=== PATIENT | male | born 1980 | race Caucasian/White ===

== ENCOUNTER 2020-05-04 08:07 | Outpatient (REF) | payer OTHER, SELFPAY ==
[2020-05-04 09:21] LABS: MANUAL DIFF FLAG NO
[2020-05-04 09:27] LABS: Basophils Percent Auto 0.4 % (0-2); Eosinophils Absolute Auto 0.1 X10*3/uL (0.0-0.4); Eosinophils Percent Auto 1.2 % (0-4); Hematocrit 47.6 % (42-52); Hemoglobin 16.3 g/dl (14.0-18.0); Imm Gran Abs Auto 0.06 X10*3/uL (0.00-0.03); Imm Gran Pct Auto 0.9 % (0.0-0.4); Lymphocytes Absolute Auto 2.1 X10*3/uL (1.2-4.9); Lymphocytes Percent Auto 31.5 % (20-40); Mean Corpuscular HGB Conc 34.2 g/dl (31.0-36.0); Mean Corpuscular Hemoglobin 30.5 pg (27.0-33.0); Mean Corpuscular Volume 89.1 fL (80-98); Mean Platelet Volume 9.8 fL (9.4-12.4); Monocytes Absolute Auto 0.6 X10*3/uL (0.1-1.2); Monocytes Percent Auto 9.3 % (2-11); Neutrophils Absolute Auto 3.8 X10*3/uL (2.0-8.3); Neutrophils Percent Auto 56.7 % (45-73); Platelet Count 194 X10*3/uL (160-400); Red Blood Count 5.34 X10*6/uL (4.60-5.80); Red Cell Distribution Width 11.8 % (11.0-16.0); White Blood Count 6.8 X10*3/uL (4.8-10.8)
[2020-05-04 10:00] LABS: Alanine Aminotransferase 59 U/L (0-40); Albumin Level 4.6 g/dL (3.5-5.0); Alkaline Phosphatase 66 U/L (39-117); Anion Gap 11 (12-20); Aspartate Amino Transferase 28 U/L (5-37); Bilirubin Total 1.3 mg/dL (0.0-1.0); Blood Urea Nitrogen 15 mg/dL (9-16); Calcium 8.9 mg/dL (8.4-10.2); Carbon Dioxide 27 mmol/L (22-29); Chloride 104 mmol/L (96-108); Cholesterol 188 mg/dL; Estimated Glomerular Filt Rate > 60; Glucose Random 90 mg/dL (60-115); HDL Cholesterol 40 mg/dL; LDL Cholesterol Calculated 108 mg/dl; Potassium 4.4 mmol/l (3.3-5.1); Sodium 138 mmol/L (135-145); Total Protein 7.2 g/dL (6.5-8.0); Triglycerides 202 mg/dL
[2020-05-04 10:22] LABS: Thyroid Stimulating Hormone 0.84 mIU/mL (0.32-4.0)
== END 2020-05-04 08:08 | disposition home or self-care (01) ==
LOC: HO.LAB 08:07
PROVIDERS: PCP Physician Assistant; Visit Provider Physician Assistant
DX: I10 Essential (primary) hypertension (principal); Z13.1 Encounter for screening for diabetes mellitus; Z13.220 Encounter for screening for lipoid disorders
CPT/HCPCS: 36415; 80053; 80061; 84443; 85025

== ENCOUNTER 2020-06-11 13:10 | Outpatient (REF) | payer OTHER, SELFPAY ==
[2020-06-11 13:30] LABS: COVID-19 Test Negative (Negative)
== END 2020-06-11 13:11 | disposition home or self-care (01) ==
LOC: HO.LAB 13:10
PROVIDERS: Visit Provider Internal Medicine
DX: Z20.828 Contact with and (suspected) exposure to other viral communicable diseases (principal)
CPT/HCPCS: 87635; C9803

== ENCOUNTER 2020-06-14 12:31 | Outpatient (REF) | payer OTHER, SELFPAY ==
[2020-06-14 13:02] LABS: COVID-19 Test Positive (Negative)
== END 2020-06-14 12:32 | disposition home or self-care (01) ==
LOC: HO.EMPCOV 12:31
PROVIDERS: Visit Provider Internal Medicine
DX: Z20.828 Contact with and (suspected) exposure to other viral communicable diseases (principal)
CPT/HCPCS: 87635; C9803

== ENCOUNTER 2023-06-05 13:06 | Outpatient (AMB) | payer BC, SELFPAY ==
--- NOTE | 2023-06-05 13:16 | A.OFFPC_ITS ---
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 Accompanied by: Self / Same As Patient Allergies amoxicillin Allergy (Unknown, Verified 06/05/23 14:03) gum swelling Medication List - Last Reconciled 06/05/23 by Reed Pillai PA-C finasteride 5 mg PO DAILY valacyclovir 1,000 mg PO DAILY Tobacco use date assessed: 06/05/23 Dental Screening Dental Screen Date: 06/05/23 Did you have a dental visit in the last 12 months?: Yes Did you have a dental problem in the last 6 months where you did not have access to dental care?: No Was dental information given to patient?: Patient has dentist HPI Conflict with original date HPI Details Patient is a 42 y/o male? here today for a PE.? Patient's past medical history significant for ADHD, history of elevated blood pressure readings. . ADHD : feels he is able to focus at work and not be as distracted.? Has tried Strattera though had side effects of this medication. He is establishing care with a new psychiatrist and will discuss symptoms and possible new medication. He also feels his anxiety is much less. ? .. ?? ?Hypertension: Elevated blood pressure readings over the last several years here in the medical office and at home with home blood pressure readings.:? Will start blood pressure medication at low-dose and continue monitoring. . .. Obesity: Patient does understand his BMI is over 30 and will continue working on being more physically active and adapting to better eating habits to reduce his weight .. ? Male pattern baldness:? patient has been getting finasteride 5 mg online? and now would like his PCP to fill the medications due to cost effectiveness. Vaccines: Up-to-date with COVID vaccine up-to-date with tetanus and flu vaccine PFSH Medical History History of herpes simplex infection Cervical spondylosis Surgical History Hx of cervical spine surgery Family History (Updated 06/05/23 @ 14:09 by Reed Pillai PA-C) Father Cancer of kidney Mother Lung cancer Housing: House Alcohol intake: current Alcohol intake frequency: a few times a month Patient Tobacco Use Status: Never used Tobacco e-Cigarette/Vaping Use: Never Used service: No Current occupational status: employed Cognitive needs: No Hearing needs: No Vision needs: No Questionnaire PHQ-9 Over the last 2 weeks, how often have you been bothered by any of the following problems? 1. Little interest or pleasure in doing things: not at all 2. Feeling down, depressed, or hopeless: not at all 3. Trouble falling or staying asleep, or sleeping too much: not at all 4. Feeling tired or having little energy: not at all 5. Poor appetite or overeating: not at all 6. Feeling bad about yourself - or that you are a failure or have let yourself or your family down: not at all 7. Trouble concentrating on things, such as reading the newspaper or watching television: not at all 8. Moving or speaking so slowly that other people could have noticed. Or the opposite - being so fidgety or restless that you have been moving around a lot more than usual: not at all 9. Thoughts that you would be better off or of hurting yourself in some way: not at all Total score: 0 Depression Screening Interpretation: Negative Depression Screening Done: Yes 53222 - PHQ-9 Billing: Yes Source: Developed by Drs. Raoul Escamilla, Ronna Luna, Damion Choe and colleagues, with an educational glenroy from [employer] (Inspect Manager). Thrive Questionnaire Date Thrive assessed: 06/05/23 I am a: Patient What is your living situation today?: I have a steady place to live Within the past 12 months, did the food you bought not last and you didn't have the money to get more?: Never true Within the past 12 months, did you worry whether your food would run out before you got money to buy more?: Never true Do you have trouble paying for medicines?: No Do you have trouble getting transportation to medical appointments?: No Do you have trouble paying your heating and electricity bill?: No Do you have trouble taking care of your child, family member or friend?: No Do you have trouble with day-to-day activities such as bathing, preparing meals, shopping, managing finances, etc.?: No Are you currently unemployed and looking for a job?: No Are you interested in more education?: No Please select the resources that you would like help with: None Currently or been in a relationship where the following occur: no concerns reported DARIO-7 AMB Questionnaire DARIO-7 Date DARIO - 7 assessed: 06/05/23 Feeling nervous, anxious, or on edge: 0 = Not at all Not being able to stop or control worryin = Not at all Worrying too much about different things: 0 = Not at all Trouble relaxin = Not at all Being so restless that it is hard to sit still: 0 = Not at all Becoming easily annoyed or irritable: 0 = Not at all Feeling afraid as if something awful might happen: 0 = Not at all Total DARIO-7 score (0-4 normal; 5-9 mild; 10-14 moderate; 15-21 severe): 0 Source: Developed by Drs. Raoul Escamilla, Ronna Luna, Damion Choe and colleagues, with an educational glenroy from [employer] (Inspect Manager). DARIO-7 Assessment Billing DARIO-7 Assessment Tool: DARIO-7 Assessment 66571 Review of Systems Const Denies body aches, Denies chills, Denies excessive sweating, Denies fatigue, Denies fever(s) and Denies headache(s) Eyes Denies blurry vision ENT Denies dysphagia, Denies vertigo, Denies dizziness, Denies headache(s), Denies hearing loss and Denies tinnitus Card Denies chest pain, Denies chest pain with activity, Denies syncope, Denies irregular heart rhythm and Denies dyspnea Resp Denies chest congestion, Denies cough, Denies hemoptysis, Denies dyspnea and Denies wheezing GI Denies abdominal pain, Denies melena, Denies hematochezia, Denies coffee ground emesis, Denies dysphagia, Denies diarrhea, Denies nausea and Denies vomiting Denies difficulty urinating, Denies dysuria, Denies urinary frequency, Denies urinary hesitancy and Denies urinary urgency Musc Denies arthralgias, Denies limited range of motion, Denies muscle cramps and Denies muscle weakness Skin/Breast Denies rash and Denies skin ulcer Neuro Denies Abnormal speech present, Denies confusion, Denies vertigo, Denies dizziness, Denies syncope, Denies headache(s), Denies memory loss and Denies seizure-like activity Psych Denies anxiety, Denies confusion, Denies depression, Denies memory loss, Denies panic attacks and Denies paranoia Endo Denies excessive sweating, Denies fatigue, Denies flushing, Denies polydipsia and Denies polyuria Aller/Immun Denies wheezing Physical exam (Primary Care) Vital Signs: Last Vital Signs Pulse 67 06/05/23 13:17 BP 142/88 H 06/05/23 13:17 Pulse Ox 97 06/05/23 13:17 Oxygen Delivery Method Room Air 06/05/23 13:17 BMI result Body Mass Index 32.6 BMI Assessment/Plan discussion: High Tobacco/Smoking Status: Tobacco use Status Tobacco use date assessed 06/05/23 06/05/23 13:28 Patient Tobacco Use Status Never used Tobacco 06/05/23 13:25 e-Cigarette/Vaping Use Never Used 06/05/23 13:28 PHQ-9: PHQ-9 Score PHQ-9: Total score 0 06/05/23 14:12 Depression Screening Interpretation: Negative Thrive Assessment: Date of Thrive Assessment Date Thrive assessed 06/05/23 06/05/23 13:25 Currently or been in a relationship where the following occur: no concerns reported Const Other: Obese General: cooperative, comfortable, no acute distress, alert and awake; No confusion Orientation/consciousness: oriented to person, oriented to place, patient oriented x3 and No confusion HENMT Head: Yes normocephalic Ears: external ears normal and TM's normal bilaterally Face and sinus: No sinus tenderness Mouth: Normal oral and palatal mucosa present and tongue normal Teeth and gingiva: dentition normal and gingiva normal Throat: Yes posterior oropharynx normal, Yes tonsils normal and Yes uvula midline Eyes Conjunctivae: conjunctivae normal Sclerae: sclerae normal Pupils: Equal, round and reactive pupils present EOM: EOMs intact bilaterally Direct Ophthalmoscopy: No no photophobia Neck Neck: Yes no lymphadenopathy, No tender and Yes no JVD Thyroid: Thyroid normal Carotids: no bruits Chest Chest palpation & inspection: no tenderness Resp Effort & Inspection: normal respiratory effort, no audible wheezes, not labored and no stridor Auscultation: no crackles, no rales, no rhonchi and no wheezes Cardio Jugular venous distension: no JVD Rate: regular rate, not bradycardic and not tachycardic Rhythm: regular rhythm Bruits: no carotid bruits Peripheral pulses: Peripheral pulses 2+ throughout GI Inspection: Yes normal to inspection, No abdominal wall ecchymosis and No visible herniation Palpation (GI): Soft to palpation, nontender, no guarding, not rigid and No hepatosplenomegaly present Auscultation: normoactive bowel sounds General: Yes no CVA tenderness Back/Spine/Pelvis Back: no CVA tenderness and No back tenderness Cervical Spine: cervical ROM normal Thoracic/Lumbar Spine: thoracic and lumbar spine normal to inspection, straight leg raise negative bilaterally, No thoraco-lumbar ROM limited and No lumbar spinal tenderness Skin Lesions: no lesions Rashes: no rashes Wounds: no wounds Neuro General: oriented to person, oriented to place, patient oriented x3, CN's II-XI intact bilaterally and No confusion Cranial nerves: Yes Equal, round and reactive pupils present and Yes Normal accommodation reflex present Cognition (Neuro): normal cognition Speech: No Abnormal speech present Gait exam (Neuro): Normal gait present Motor exam (neuro): 5/5 motor strength present throughout Extrem Right upper extremity: full ROM; no cyanosis Left upper extremity: full ROM; no cyanosis Right lower extremity: no edema Left lower extremity: no edema Psych Appearance: grossly normal Mental Status: mental status grossly normal Affect: normal affect Attitude: cooperative Thought process: Normal thought process present Assessment and Plan Assessment & Plan (1) Annual physical exam: Code(s): Z00.00 - Encounter for general adult medical examination without abnormal findings (2) HTN (hypertension): Code(s): I10 - Essential (primary) hypertension Qualifiers: Hypertension type: primary hypertension Qualified Code(s): I10 - Essential (primary) hypertension Plan: Patient's blood pressure slightly elevated today in office. This has been a recurrent finding thus now interested in starting blood pressure medication. Will start low-dose hydrochlorothiazide on a daily basis for blood pressure control. Advised to continue monitoring blood pressure with goal blood pressure to be below 140/90 (3) ADHD, predominantly inattentive type: Code(s): F90.0 - Attention-deficit hyperactivity disorder, predominantly inattentive type Plan: Continues to manage his ADHD without medication at this time. Has tried Strattera out which was somewhat effective though did not like to side effects. He will reestablish care with a psychiatrist in near future continue discussing symptoms and alternative medication. Is not interested in any stimulants. (4) Hypertriglyceridemia: Code(s): E78.1 - Pure hyperglyceridemia Plan: Patient has a history of hypertriglyceridemia, has made lifestyle changes in his diet recently and will get repeat labs done fasting. Goal triglycerides to be below 150 (5) Screening for diabetes mellitus (DM): Code(s): Z13.1 - Encounter for screening for diabetes mellitus (6) Obese: Code(s): E66.9 - Obesity, unspecified Qualifiers: Body mass index: BMI 30.0-30.9 Obesity classification: adult class 1 (BMI 30 - 34.9) Obesity type: due to excess calories Serious obesity comorbidity presence: without serious comorbidity Qualified Code(s): E66.09 - Other obesity due to excess calories; Z68.30 - Body mass index [BMI] 30.0-30.9, adult Plan: Patient does understand his BMI is slightly over 30 will continue working on being more physically active and adapting to better eating habits to reduce his weight. Orders: Orders Microalbumin, Random (w Creat) 06/05/23 I10 - Essential (primary) hypertension Lipid Panel 06/05/23 E78.1 - Pure hyperglyceridemia Comprehensive [place]. Panel Fast 06/05/23 Z13.1 - Encounter for screening for diabetes mellitus Complete Blood Count no Diff 06/05/23 I10 - Essential (primary) hypertension Medications: New hydrochlorothiazide 12.5 mg PO DAILY 30 days 30 tabs 3RF I10 - Essential (primary) hypertension Coding Level of Care Code Est Pt Prev Care 40-64y([id number]) Diagnoses Annual physical exam Z00.00 Primary hypertension I10 Hypertension type: primary hypertension ADHD, predominantly inattentive type F90.0 Hypertriglyceridemia E78.1 Screening for diabetes mellitus (DM) Z13.1 Class 1 obesity due to excess calories without serious comorbidity with body mass index (BMI) of 30.0 to 30.9 in adult E66.09; Z68.30 Body mass index: BMI 30.0-30.9 Obesity classification: adult class 1 (BMI 30 - 34.9) Obesity type: due to excess calories Serious obesity comorbidity presence: without serious comorbidity Additional Codes DARIO-7 Assessment Billing - DARIO-7 Assessment Tool: DARIO-7 Assessment 46211 ([id number])
[2023-06-05 13:17] VITALS: BP 142/88; PULSE 67; O2SAT 97; BMI 32.6
== END 2023-06-05 14:32 | disposition home or self-care (01) ==
PROVIDERS: Visit Provider Physician Assistant
DX: Z00.00 Encounter for general adult medical examination without abnormal findings (principal); I10 Essential (primary) hypertension; F90.0 Attention-deficit hyperactivity disorder, predominantly inattentive type; E78.1 Pure hyperglyceridemia; Z13.1 Encounter for screening for diabetes mellitus; E66.09 Other obesity due to excess calories; Z68.30 Body mass index [BMI] 30.0-30.9, adult
CPT/HCPCS: 99396

== ENCOUNTER 2023-07-03 10:54 | Outpatient (REF) | payer BC, SELFPAY ==
[2023-07-03 11:36] LABS: Hematocrit 46.7 % (42.0-52.0); Hemoglobin 16.4 g/dl (14.0-18.0); Mean Corpuscular HGB Conc 35.1 g/dl (31.0-36.0); Mean Corpuscular Hemoglobin 30.8 pg (27.0-33.0); Mean Corpuscular Volume 87.6 fL (80.0-98.0); Mean Platelet Volume 10.2 fL (9.4-12.4); Platelet Count 155 X10*3/uL (160-400); Red Blood Count 5.33 X10*6/uL (4.60-5.80); Red Cell Distribution Width 12.1 % (11.0-16.0); White Blood Count 10.1 X10*3/uL (4.8-10.8)
[2023-07-03 12:19] LABS: Alanine Aminotransferase 33 U/L (0-40); Albumin Level 4.8 g/dL (3.5-5.0); Alkaline Phosphatase 66 U/L (39-117); Anion Gap 13 (12-20); Aspartate Amino Transferase 20 U/L (5-37); Bilirubin Total 1.5 mg/dL (0.0-1.0); Blood Urea Nitrogen 13 mg/dL (9-16); Calcium 10.2 mg/dL (8.4-10.2); Carbon Dioxide 27 mmol/L (22-29); Chloride 106 mmol/L (96-108); Cholesterol 191 mg/dL (<200); Estimated Glomerular Filt Rate > 60; Glucose Fasting 94 mg/dL (60-99); HDL Cholesterol 44 mg/dL (>40); LDL Cholesterol Calculated 105 mg/dL (<100); Potassium 3.8 mmol/L (3.3-5.1); Sodium 142 mmol/L (135-145); Triglycerides 211 mg/dL (<150)
[2023-07-03 12:26] LABS: Creatinine Urine 102.68 mg/dL; Microalbum/Creatinine Ratio Ur 19.4 ug/mg cr (<30)
== END 2023-07-03 10:55 | disposition home or self-care (01) ==
LOC: HO.LAB 10:54
PROVIDERS: PCP Physician Assistant; Visit Provider Physician Assistant
DX: Z13.1 Encounter for screening for diabetes mellitus (principal); I10 Essential (primary) hypertension; E78.1 Pure hyperglyceridemia
CPT/HCPCS: 36415; 80053; 80061; 82043; 82570; 85027

== ENCOUNTER 2023-07-30 13:31 | Emergency (ER) | payer BC, SELFPAY ==
--- NOTE | ~2023-07-30 | XR_ITS ---
EXAMINATION: XR CHEST CLINICAL INFORMATION: Chest tightness COMPARISON: None available. TECHNIQUE: 2 views of the chest were obtained. FINDINGS: No significant abnormality is noted involving the heart, lungs, mediastinum, bony thorax or soft tissues. XR/XR chest 2V IMPRESSION: Unremarkable examination.
--- NOTE | 2023-07-30 13:33 | ECG_ITS ---
Test Reason : chest pain Blood Pressure : / mmHG Vent. Rate : 099 BPM Atrial Rate : 099 BPM P-R Int : 154 ms QRS Dur : 100 ms QT Int : 346 ms P-R-T Axes : 056 -49 031 degrees QTc Int : 444 ms Normal sinus rhythm Left axis deviation Minimal voltage criteria for LVH, may be normal variant ( [place] product ) Abnormal ECG No previous ECGs available Referred By: Bety Allen Electronically Signed By:KORY VEGA
[2023-07-30 13:45] VITALS: BP 161/93; PULSE 93; RESP 18; TEMP 36.8; O2SAT 98; BMI 30.7
--- NOTE | 2023-07-30 13:45 | ED_ITS ---
HPI - Chest Pain General Chief Complaint: Chest Pain Stated Complaint: chest tightness Time Seen by Provider: 07/30/23 15:21 Source: patient Mode of arrival: ambulatory Limitations: no limitations History of Present Illness HPI narrative: Patient is a 43 year old assigned male at with a history of ADHD presenting to the emergency department today with intermittent left sided chest pain. Patient states that over the last 2 months he has had 2 episodes of left sided chest pain and chest heaviness. Patient states that his most recent episode was when he woke up to multiple inches of water in his basement. Patient states that the pain continues but isn't as bad as it originally was. Patient denies any dizziness, lightheadedness, abdominal pain, nausea, vomiting, fever, chills, blurry vision, double vision, loss of vision, difficulty breathing, shortness of breath, back pain, night sweats, pain with urination, increased urinary frequency, increased urinary urgency, blood in his urine or stool, syncope or a near syncopal episode, recent trauma or falls, bowel incontinence, bladder incontinence, bowel retention, bladder retention, or any other complaints at this time. MD complaint: chest pain Related Data Previous Rx's Medication Instructions Recorded finasteride 5 mg tablet 5 mg PO DAILY #90 tabs 12/15/22 valacyclovir 1 gram tablet 1,000 mg PO DAILY #7 tabs 12/15/22 lisinopril 2.5 mg tablet 2.5 mg PO DAILY 30 days #30 tabs 07/26/23 hydroxyzine HCl 10 mg tablet 10 mg PO TID PRN anxiety #14 tabs 07/30/23 Allergies Allergy/AdvReac Type Severity Reaction Status Date / Time No Known Allergies Allergy Verified 07/30/23 13:45 Review of Systems 2 Constitutional: Constitutional: Reports no additional constitutional complaints, Denies chills, Denies fever(s) and Denies night sweats Eyes: Eyes: Reports no additional eye complaints, Denies blurry vision, Denies change in vision, Denies diplopia, Denies eye discharge, Denies loss of vision and Denies eye pain ENT: Denies dizziness Cardiovascular: Cardiovascular: Reports no additional cardiovascular complaints, Reports chest pain, Denies lightheadedness, Denies Loss of Consciousness and Denies dyspnea Respiratory: Respiratory: Reports no additional respiratory complaints and Denies dyspnea Gastrointestinal: Gastrointestinal: Reports no additional gastrointestinal complaints, Denies abdominal pain, Denies melena, Denies hematochezia, Denies change in bowel habits and Denies change in stool character Genitourinary: Genitourinary: Reports no additional male genitourinary complaints, Denies hematuria, Denies oliguria, Denies difficulty urinating, Denies dysuria, Denies urinary frequency, Denies urinary hesitancy, Denies urinary incontinence and Denies urinary urgency Musculoskeletal: Musculoskeletal: Reports no additional musculoskeletal complaints, Denies numbness and Denies tingling Neurologic: Denies dizziness, Denies loss of vision, Denies numbness and Denies tingling Psychiatric: Psychiatric: Reports no additional psychiatric complaints Endocrine: Endocrine: Reports no additional endocrine complaints Hematologic/Lymphatic: Hematologic/Lymphatic: Reports no additional hematologic/lymphatic complaints Allergic/Immunologic: Allergic/Immunologic: Reports no additional allergic/immunologic complaints [facility] Past Medical History Attestation statement: The following information was validated with the patient. Source: old records reviewed and nursing notes reviewed Onset Date is defined in the Problem List Problems that require an onset date and time if occurred within 24 hrs of arrival to the ED Aortic Dissection and Rupture; Neurologic impairment; Cardiopulmonary Arrest; Endotracheal Intubation; Insertion or Replacement of Mechanical Circulatory Assist Device Medical History History of herpes simplex infection Cervical spondylosis Surgical History Hx of cervical spine surgery Family History Family History Father Cancer of kidney Mother Lung cancer Social History Social History Housing: House Alcohol intake: current Alcohol intake frequency: a few times a month Patient Tobacco Use Status: Never used Tobacco e-Cigarette/Vaping Use: Never Used Advance Directives: No Advance Directives Information Provided: No service: No Current occupational status: employed Cognitive needs: No Hearing needs: No Vision needs: No Physical Exam 2 Vital Signs: Vital Signs: Last Vital Signs Temp 98.2 F 07/30/23 13:45 Pulse 93 07/30/23 13:45 Resp 18 07/30/23 13:45 BP 161/93 H 07/30/23 13:45 Pulse Ox 98 07/30/23 13:45 O2 Del Method Room Air 07/30/23 13:45 BMI result Body Mass Index 30.7 Const: General: cooperative, no acute distress, alert and awake Nutritional Appearance: well nourished Orientation/consciousness: patient oriented x3 Limitations: no limitations HEENT: Head: Yes normal to inspection and Yes atraumatic Ears: hearing grossly normal bilaterally and external ears normal General nose exam: Normal external nose present, no nasal discharge noted and no epistaxis Face and sinus: Yes normal facial exam, No abrasion and No laceration Mouth: Normal oral and palatal mucosa present, no drooling and no muffled voice Eyes: General: appearance normal, both eyes and all related structures P eriorbital: periorbital findings normal Eyelids: Yes eyelids normal C onjunctivae: conjunctivae normal Pupils: Equal, round and reactive pupils present EOM: EOMs intact bilaterally Neck: Neck: Yes normal visual inspection, Yes full ROM and Yes no lymphadenopathy Chest: Chest palpation & inspection: normal inspection of the chest Resp: Effort & Inspection: normal respiratory effort and able to speak in complete sentences Auscultation: clear to auscultation bilaterally Cardio: Rate: regular rate Rhythm: regular rhythm GI: Inspection: Yes normal to inspection Neuro: General: patient oriented x3 and moves all extremities Cranial nerves: Yes Equal, round and reactive pupils present Cognition (Neuro): n ormal cognition Motor exam (neuro): 5/5 motor strength present throughout Sensory Exam: Normal double simultaneous stimulation for sensation C oordination: [id number] test normal Extrem: General: Yes normal to inspection, Yes full ROM and Yes capillary refill normal Psych: Appearance: grossly normal Mental Status: mental status grossly normal Affect: normal affect Attitude: cooperative Thought process: N ormal thought process present Thought content: Normal thought content present Insight: Good insight present (Psych) Course Course Course Narrative: RME:?43 yo male hx ADHD here w/ chest tightness x6 days. Placed on doxy on 07/07 after being exposed to pneumonia. Began having chest tightness 1 week later. saw PCP who placed him on lisinopril 2.5 mg qd 6 days ago for elevated BP. has been having chest tightness since. bp at home this morning was 160s/90s. denies headache, dizziness, vision changes, chest pain, sob. lungs CTA b/l. plan for ekg, labs Full HPI, ROS and PE to be performed by the primary ED provider. Medications Administered Discontinued Medications Generic Name Dose Route Start Last Admin Trade Name Monique PRN Reason Stop Dose Admin Ketorolac Tromethamine 15 mg 07/30/23 15:37 07/30/23 15:48 Ketorolac Tromethamine 15 Mg/Ml Vial IM 07/30/23 15:38 15 mg ONCE ONE Administration Medical Decision Making Medical Decision Making [facility] Narrative: Patient is a 43 year old assigned male at with a history of ADHD presenting to the emergency department today with intermittent left sided chest pain. Patient's physical exam was unremarkable. Patient's blood work was unremarkable. Patient's EKG was unremarkable. Patient's chest x-ray showed no acute process. I explained my physical exam findings as well as all test results to the patient. I answered all questions asked by the patient. I stressed the importance of the patient taking his medication as prescribed. I stressed the importance of the patient following up with his primary care provider and a retail sales advisor. I stressed the importance of the patient returning to the emergency department immediately if his symptoms were to worsen or if he were to develop any dizziness, shortness of breath, difficulty breathing, chest pain, blurry vision, loss of vision, nausea, vomiting, abdominal pain, fever, chills, back pain, or any other complaints. Patient verbalized agreement and understanding with this treatment plan and discharge. Differential Diagnosis Differential Diagnoses: The differential diagnosis associated with the presentation includes Chest pain STEMI NSTEMI Anxiety Admission/Observation Consideration of admission/observation: Escalation of care including admission/observation considered Patient would have been admitted to the hospital had his work up had any findings where hospital admission was appropriate and his clinical presentation warranted hospital admission. Lab Data [facility] Lab Attestation statement: I reviewed the patient's lab results. My interpretation of these studies and their corresponding values is that they are grossly normal. 07/30/23 13:55 07/30/23 13:55 Labs: Lab Results 07/30/23 Range/Units 13:55 WBC 7.8 (4.8-10.8) X10*3/uL RBC 5.67 (4.60-5.80) X10*6/uL Hgb 17.5 (14.0-18.0) g/dl Hct 48.9 (42.0-52.0) % MCV 86.2 (80.0-98.0) fL MCH 30.9 (27.0-33.0) pg MCHC 35.8 (31.0-36.0) g/dl RDW 11.8 (11.0-16.0) % Plt Count 158 L (160-400) X10*3/uL MPV 9.7 (9.4-12.4) fL Immature Gran % (Auto) 0.8 H (0.0-0.4) % Neut % (Auto) 53.6 (45-73) % Lymph % (Auto) 35.6 (20-40) % Rapides % (Auto) 8.2 (2-11) % Eos % (Auto) 1.4 (0-4) % Baso % (Auto) 0.4 (0-2) % Lymph # (Auto) 2.8 (1.2-4.9) X10*3/uL [place] # (Auto) 0.6 (0.1-1.2) X10*3/uL Eos # (Auto) 0.1 (0.0-0.4) X10*3/uL Baso # (Auto) 0.0 (0.0-0.2) X10*3/uL Abs Immat Gran (auto) 0.06 H (0.00-0.03) X10*3/uL Absolute Neuts (auto) 4.2 (2.0-8.3) x10*3/uL Absolute Nucleated RBC 0.000 (0.0-0.012) X10*3/uL Nucleated RBC % (auto) 0.0 (0.0-0.2) /100WBC Sodium 138 (135-145) mmol/L Potassium 4.2 (3.3-5.1) mmol/L Chloride 104 (96-108) mmol/L Carbon Dioxide 26 (22-29) mmol/L Anion Gap 12 (12-20) BUN 11 (9-16) mg/dL Creatinine 0.93 (0.5-1.4) mg/dL Estim Creat Clear Calc 122.1 Estimated GFR > 60 Random Glucose 106 (60-115) mg/dL Calcium 10.0 (8.4-10.2) mg/dL Magnesium 2.0 (1.6-2.6) mg/dL Troponin I High Sens < 2.7 (<3.5-35.0) ng/L Lipase 21 (8-78) U/L Independent Interpretation I performed an independent interpretation of an: EKG and Plain X-Ray Interpretation: My interpretation is in agreement with the radiologist's impression of this imaging study. - EXAMINATION: XR CHEST CLINICAL INFORMATION: Chest tightness COMPARISON: None available. TECHNIQUE: 2 views of the chest were obtained. FINDINGS: No significant abnormality is noted involving the heart, lungs, mediastinum, bony thorax or soft tissues. XR/XR chest 2V IMPRESSION: Unremarkable examination. Dictated By: Carmen Terry MD Signed By: Electronically signed by Carmen Terry MD 07/30/23 1439 - Vent. Rate: 099 BPM Atrial Rate: 099 BPM P-R Int: 154 ms QRS Dur: 100 ms QT Int: 346 ms P-R-T Axes: 056 -49 031 degrees QTc Int: 444 ms Normal sinus rhythm Left axis deviation Minimal voltage criteria for LVH, may be normal variant ( Luis Antonio product ) Abnormal ECG No previous ECGs available Electronically Signed By:MISHA VEGA Dictated By: Misha Vega MD Signed By: Electronically signed by Misha Vega MD 07/30/23 9547 Radiology Impression Discussion of test interpretation with radiology: I have reviewed the radiologist's reading. Discharge Plan Discharge Clinical Impression: Chest pain, Anxiety Patient Disposition: Home, Self-Care Instructions: Chest Pain (DC), Generalized Anxiety Disorder (ED) Additional Instructions: Follow up with your primary care provider and a retail sales advisor. Return to the emergency department immediately if your symptoms worsen or if you develop any dizziness, shortness of breath, difficulty breathing, chest pain, blurry vision, loss of vision, nausea, vomiting, abdominal pain, fever, chills, back pain, or any other complaints. Prescriptions: New hydroxyzine HCl 10 mg tablet 10 mg PO TID PRN (Reason: anxiety) Qty: 14 0RF No Action finasteride 5 mg tablet 5 mg PO DAILY Qty: 90 1RF valacyclovir 1 gram tablet 1,000 mg PO DAILY Qty: 7 1RF lisinopril 2.5 mg tablet 2.5 mg PO DAILY 30 Days Qty: 30 3RF Referrals: [facility] [Provider Group] (Call to establish and follow up with a retail sales advisor. ) Reed Pillai PA-C [Primary Care Provider] - Interventions: ED Discharge Assessment Last Done: 07/30/23 15:54 Discharge Date/Time: 07/30/23 15:55 Print Language: Amharic
[2023-07-30 13:59] LABS: MANUAL DIFF FLAG NO
[2023-07-30 14:01] LABS: Basophils Percent Auto 0.4 % (0-2); Eosinophils Absolute Auto 0.1 X10*3/uL (0.0-0.4); Eosinophils Percent Auto 1.4 % (0-4); Hematocrit 48.9 % (42.0-52.0); Hemoglobin 17.5 g/dl (14.0-18.0); Imm Gran Abs Auto 0.06 X10*3/uL (0.00-0.03); Imm Gran Pct Auto 0.8 % (0.0-0.4); Lymphocytes Absolute Auto 2.8 X10*3/uL (1.2-4.9); Lymphocytes Percent Auto 35.6 % (20-40); Mean Corpuscular HGB Conc 35.8 g/dl (31.0-36.0); Mean Corpuscular Hemoglobin 30.9 pg (27.0-33.0); Mean Corpuscular Volume 86.2 fL (80.0-98.0); Mean Platelet Volume 9.7 fL (9.4-12.4); Monocytes Absolute Auto 0.6 X10*3/uL (0.1-1.2); Monocytes Percent Auto 8.2 % (2-11); Neutrophils Absolute Auto 4.2 x10*3/uL (2.0-8.3); Neutrophils Percent Auto 53.6 % (45-73); Platelet Count 158 X10*3/uL (160-400); Red Blood Count 5.67 X10*6/uL (4.60-5.80); Red Cell Distribution Width 11.8 % (11.0-16.0); White Blood Count 7.8 X10*3/uL (4.8-10.8)
[2023-07-30 14:13] LABS: Anion Gap 12 (12-20); Blood Urea Nitrogen 11 mg/dL (9-16); Carbon Dioxide 26 mmol/L (22-29); Chloride 104 mmol/L (96-108); Creatinine Clr Calc Pharmacy 122.1; Estimated Glomerular Filt Rate > 60; Glucose Random 106 mg/dL (60-115); Lipase 21 U/L (8-78); Potassium 4.2 mmol/L (3.3-5.1); Sodium 138 mmol/L (135-145)
[2023-07-30 14:21] LABS: Troponin-I High Sensitivity < 2.7 ng/L (<3.5-35.0)
[2023-07-30] MEDS: Ketorolac Tromethamine 15 MG/ML VIAL IM (15:48)
== END 2023-07-30 15:55 | disposition home or self-care (01) ==
PROVIDERS: Physician Assistant Medical; Emergency Provider Emergency Medicine; PCP Physician Assistant
DX: R07.89 Other chest pain (principal); F41.1 Generalized anxiety disorder; F43.0 Acute stress reaction; Z79.899 Other long term (current) drug therapy
CPT/HCPCS: 36415; 71046; 80048; 83690; 83735; 84484; 85025; 93005; 96372; 99283; 99284; J1885

== ENCOUNTER → 2023-07-30 13:33 | Outpatient (BNV) | payer BC, SELFPAY | PROVIDERS: Emergency Provider Emergency Medicine; PCP Physician Assistant; Visit Provider Internal Medicine | DX: R94.31 Abnormal electrocardiogram [ECG] [EKG] (principal) | CPT/HCPCS: 93010 ==

== ENCOUNTER 2023-12-04 12:46 | Outpatient (AMB) | payer BC, SELFPAY ==
[2023-12-04 12:57] VITALS: BP 142/98; PULSE 66; O2SAT 97; BMI 31.5
--- NOTE | 2023-12-04 12:57 | A.OFFPC_ITS ---
Vital Signs 3 12/04/23 12:57 Height 5 ft 10 in Weight 219 lb 8 oz BMI 31.5 BP 142/98 H Blood Pressure Location Lt brachial Position Sitting Pulse 66 Pulse Source Pulse Oximeter Pulse Oximetry (%) 97 Oxygen Delivery Method Room Air Intake Visit Reasons: throat issues/ENT referral Summer Analyst Required: No Accompanied by: Self / Same As Patient Allergies No Known Allergies Allergy (Verified 12/04/23 13:07) Medication List - Last Reconciled 12/04/23 by Reed Pillai PA-C finasteride 5 mg PO DAILY hydroxyzine HCl 10 mg PO BID PRN 90 days lisinopril 2.5 mg PO DAILY 90 days valacyclovir 1,000 mg PO DAILY Tobacco use date assessed: 12/04/23 Dental Screening Dental Screen Date: 12/04/23 Did you have a dental visit in the last 12 months?: Yes Did you have a dental problem in the last 6 months where you did not have access to dental care?: No Was dental information given to patient?: Patient has dentist HPI throat issues/ENT referral 2 HPI0 Details Patient is a 43-year-old male here today for urgent same-day problem visit. Reports over the last 2 weeks having a globus sensation and hoarseness of voice that recently resolved over the last 12 hours. He believes it is something psychosomatic as he has been having anxiety as of late. He has also been on multiple rounds of antibiotics for a dental issue. He is interested in seeing ENT for evaluation of his throat and tonsils as he quite often gets throat pain. Otherwise patient does not a smoker. [facility] Medical History History of herpes simplex infection Cervical spondylosis Surgical History Hx of cervical spine surgery Family History Father Cancer of kidney Mother Lung cancer Social History Housing: House Alcohol intake: current Alcohol intake frequency: a few times a month Patient Tobacco Use Status: Never used Tobacco e-Cigarette/Vaping Use: Never Used Second Hand Smoke Exposure: No service: No Current occupational status: employed Current occupational exposures/hazards: No Cognitive needs: No Hearing needs: No Vision needs: No Questionnaire PHQ-9 Over the last 2 weeks, how often have you been bothered by any of the following problems? 1. Little interest or pleasure in doing things: not at all 2. Feeling down, depressed, or hopeless: not at all 3. Trouble falling or staying asleep, or sleeping too much: not at all 4. Feeling tired or having little energy: not at all 5. Poor appetite or overeating: not at all 6. Feeling bad about yourself - or that you are a failure or have let yourself or your family down: not at all 7. Trouble concentrating on things, such as reading the newspaper or watching television: not at all 8. Moving or speaking so slowly that other people could have noticed. Or the opposite - being so fidgety or restless that you have been moving around a lot more than usual: not at all 9. Thoughts that you would be better off or of hurting yourself in some way: not at all Total score: 0 Depression Screening Interpretation: Negative Depression Screening Done: Yes 90089 - PHQ-9 Billing: Yes Source: Developed by Drs. Raoul Escamilla, Ronna Luna, Damion Choe and colleagues, with an educational glenroy from [employer]. Thrive Questionnaire Date Thrive assessed: 12/04/23 I am a: Patient What is your living situation today?: I have a steady place to live Within the past 12 months, did the food you bought not last and you didn't have the money to get more?: Never true Within the past 12 months, did you worry whether your food would run out before you got money to buy more?: Never true Do you have trouble paying for medicines?: No Do you have trouble getting transportation to medical appointments?: No Do you have trouble paying your heating and electricity bill?: No Do you have trouble taking care of your child, family member or friend?: No Do you have trouble with day-to-day activities such as bathing, preparing meals, shopping, managing finances, etc.?: No Are you currently unemployed and looking for a job?: No Are you interested in more education?: No Please select the resources that you would like help with: None Currently or been in a relationship where the following occur: no concerns reported THRIVE Score: 0 AUDIT C Alcohol Use Questionnaire (AUDIT-C) 1. How often do you have a drink containing alcohol?: Monthly or less 2. How many drinks containing alcohol do you have on a typical day when you are drinking?: 1 or 2 3. How often do you have six or more drinks on one occasion?: Never Total Score: 1 DARIO-7 AMB Questionnaire DARIO-7 Date DARIO - 7 assessed: 12/04/23 Feeling nervous, anxious, or on edge: 0 = Not at all Not being able to stop or control worryin = Not at all Worrying too much about different things: 0 = Not at all Trouble relaxin = Not at all Being so restless that it is hard to sit still: 0 = Not at all Becoming easily annoyed or irritable: 0 = Not at all Feeling afraid as if something awful might happen: 0 = Not at all Total DARIO-7 score (0-4 normal; 5-9 mild; 10-14 moderate; 15-21 severe): 0 Source: Developed by Drs. Raoul Escamilla, Ronna Luna, Damion Choe and colleagues, with an educational glenroy from [employer]. DARIO-7 Assessment Billing DARIO-7 Assessment Tool: DARIO-7 Assessment 64051 Review of Systems Const Denies headache(s) Eyes Denies loss of vision ENT Denies vertigo, Denies dizziness, Denies headache(s) and Denies sore throat Card Denies chest pain, Denies leg edema and Denies lightheadedness Resp Denies cough, Denies hemoptysis and Denies wheezing GI Denies abdominal pain, Denies melena, Denies constipation, Denies diarrhea and Denies vomiting Denies dysuria, Denies urinary frequency and Denies urinary urgency Musc Denies arthralgias, Denies joint swelling, Denies numbness and Denies tingling Neuro Denies Abnormal speech present, Denies behavioral changes, Denies vertigo, Denies dizziness, Denies headache(s), Denies loss of vision, Denies memory loss, Denies numbness and Denies tingling Psych Denies anxiety, Denies behavioral changes, Denies depression, Denies memory loss and Denies panic attacks [place]/Lymph Denies easy bleeding and Denies easy bruising Aller/Immun Denies wheezing Physical exam (Primary Care) Vital Signs: Last Vital Signs Pulse 66 12/04/23 12:57 BP 142/98 H 12/04/23 12:57 Pulse Ox 97 12/04/23 12:57 Oxygen Delivery Method Room Air 12/04/23 12:57 BMI result Body Mass Index 31.5 Tobacco/Smoking Status: Tobacco use Status Tobacco use date assessed 12/04/23 12/04/23 13:05 Patient Tobacco Use Status Never used Tobacco 12/04/23 12:58 e-Cigarette/Vaping Use Never Used 12/04/23 12:58 PHQ-9: PHQ-9 Score PHQ-9: Total score 0 12/04/23 12:58 Depression Screening Interpretation: Negative Thrive Assessment: Date of Thrive Assessment Date Thrive assessed 12/04/23 12/04/23 12:58 Currently or been in a relationship where the following occur: no concerns reported Const General: healthy appearing, no acute distress, alert and awake Nutritional Appearance: well nourished Orientation/consciousness: oriented to person, oriented to place and oriented to time HENMT Ears: TM's normal bilaterally General nose exam: Normal nasal mucous membranes and turbinates present Mouth/tongue images: 2 1. SMALL WHITE PATCH IN THE POSTERIOR PHARYNX NOTED. Eyes Conjunctivae: conjunctivae normal Sclerae: sclerae normal Pupils: Equal, round and reactive pupils present Neck Neck: Yes no lymphadenopathy and Yes no JVD Thyroid: Thyroid normal Carotids: no bruits Resp Effort & Inspection: normal respiratory effort and not tachypneic Auscultation: no crackles, no rales, no rhonchi and no wheezes Cardio Rate: regular rate Rhythm: regular rhythm Heart sounds: no murmurs and normal S1 and S2 GI Palpation (GI): Soft to palpation, nontender, no hepatomegaly and no splenomegaly Auscultation: normal bowel sounds Skin General skin exam: no rashes or lesions noted and dry skin Neuro General: oriented to person, oriented to place and oriented to time Cranial nerves: Yes Equal, round and reactive pupils present Speech: No Abnormal speech present Gait exam (Neuro): Normal gait present Motor exam (neuro): no tremor noted Extrem Right upper extremity: full ROM Left upper extremity: full ROM Right lower extremity: full ROM; no edema Left lower extremity: full ROM; no edema Psych Mental Status: mental status grossly normal Speech and movement: Normal speech and movement present Affect: normal affect Attitude: cooperative Thought process: Normal thought process present Assessment and Plan Assessment & Plan (1) Globus sensation: Code(s): R09.A2 - Foreign body sensation, throat Plan: As per HPI patient is interested in seeing ENT for direct visualization vocal cords due to his recent hoarseness of voice and globus sensation. Otherwise denies any dysphagia or odynophagia. Of note was on multiple rounds of antibiotics recently due to dental issue. I Suspect he may have had Jennifer infection and throat. Will supply patient with nystatin swish and swallow. (2) Hoarseness of voice: Code(s): R49.0 - Dysphonia (3) Enlarged tonsils: Code(s): J35.1 - Hypertrophy of tonsils Orders: Referrals 2 Ear/Nose/Throat Referral J35.1 - Hypertrophy of tonsils, R09.A2 - Foreign body sensation, throat Medications: New 2 lisinopril 10 mg PO DAILY 90 days 90 tabs 1RF I10 - Essential (primary) hypertension nystatin swish and swallow 10 mL PO DAILY 6 days PRN 60 mL 0RF throat irritation R09.A2 - Foreign body sensation, throat Discontinued 2 lisinopril Discontinued Reason: Doctor's Order 2.5 mg PO DAILY 90 days 90 tabs 1RF I10 - Essential (primary) hypertension Coding Level of Care Code Est Pt Level 4 (24734) Diagnoses Globus sensation R09.A2 Hoarseness of voice R49.0 Enlarged tonsils J35.1 Additional Codes DARIO-7 Assessment Billing - DARIO-7 Assessment Tool: DARIO-7 Assessment 04644 ([id number])
== END 2023-12-04 13:25 | disposition home or self-care (01) ==
PROVIDERS: PCP Physician Assistant; Visit Provider Physician Assistant
DX: R09.A2 Foreign body sensation, throat (principal); R49.0 Dysphonia; J35.1 Hypertrophy of tonsils
CPT/HCPCS: 99214

== ENCOUNTER 2024-01-28 11:04 | Emergency (ER) | payer BC, SELFPAY ==
[2024-01-28 11:22] VITALS: BP 173/114; PULSE 80; RESP 18; TEMP 36.3; O2SAT 96; BMI 31.2
--- NOTE | 2024-01-28 11:25 | ED_ITS ---
HPI - General Adult General Chief complaint: Abdominal Pain Stated complaint: throat issues Time Seen by Provider: 01/28/24 13:51 Source: patient and other Mode of arrival: ambulatory Limitations: no limitations History of Present Illness HPI narrative: 43-year-old male presents to emergency department with his girlfriend. He has multiple complaints he states he has noticed a change in his voice states that he feels like it is raspy and that he has something stuck in his throat. He is able to eat and drink normally he has had no issues with with eating but states he still feels like there is something in there he also is able to breathe he denies aspirating anything at 1 time he has had this for several months has been on antibiotics has seen multiple providers actually has an appointment to see ENT in 2 more days. He denies fevers chills cough nausea vomiting or diarrhea. He also complained of a rash to his legs spread to his abdomen which is nonspecific non itchy nonpainful any also states he has had 3 stools a day. States that because of all this he has had some trouble sleeping and started supplementing with alcohol to help him sleep at night. Patient also states that he has been having elevated blood pressure was started on Lasix initially by his primary doctor and switch to lisinopril. Still noticing issues with his blood pressure Related Data Previous Rx's ?Medication ?Instructions ?Recorded finasteride 5 mg tablet 5 mg PO DAILY #90 tabs 11/13/23 hydroxyzine HCl 10 mg tablet 10 mg PO BID PRN anxiety 90 days 11/13/23 #180 tabs lisinopril 10 mg tablet 10 mg PO DAILY 90 days #90 tabs 12/04/23 nystatin 100,000 unit/mL oral 10 ml PO DAILY PRN throat 12/04/23 suspension irritation 6 days #60 mL valacyclovir 1 gram tablet 1,000 mg PO DAILY #7 tabs 01/21/24 Allergies Allergy/AdvReac Type Severity Reaction Status Date / Time No Known Allergies Allergy Verified 01/28/24 11:26 Review of Systems 2 Review of Systems: Review of systems: General: Patient denies any fever chills recent illness or falls Musculoskeletal: Denies back pain or body aches or other injuries HEENT: denies headache, runny nose, ear pain Respiratory: denies shortness of breath, cough Cardiovascular: no chest pain or palpitations : denies dysuria, frequency Abdomen: no nausea vomiting denies abdominal pain Extremities: no swelling, no pain Skin: no diaphoresis Yes all other systems are reviewed and are negative [facility] Past Medical History Medical History History of herpes simplex infection Cervical spondylosis Surgical History Hx of cervical spine surgery Family History Family History Father Cancer of kidney Mother Lung cancer Social History Social History Housing: House Alcohol intake: current Alcohol intake frequency: a few times a month Patient Tobacco Use Status: Never used Tobacco e-Cigarette/Vaping Use: Never Used Second Hand Smoke Exposure: No service: No Current occupational status: employed Current occupational exposures/hazards: No Cognitive needs: No Hearing needs: No Vision needs: No Physical Exam ED Vital Signs: Vital Signs - 24 hr 01/28/24 11:22 Temperature 97.3 F Pulse Rate 80 Respiratory Rate 18 Blood Pressure 173/114 H Pulse Oximetry 96 Oxygen Delivery Method Room Air BMI result Body Mass Index 31.2 General: Well-appearing well-nourished in no signs of distress HEENT: Normocephalic atraumatic Neck: No signs of JVD, no masses no tenderness or lymphadenopathy Cardiovascular: Regular rate and rhythm Respiratory: Clear to auscultation bilaterally Abdomen: Soft nontender no masses Extremities: Normal pedal pulses no signs of edema Skin: Dry warm rash to right leg and abdomen is not raised small red bumps not palpable non itchy nonpruritic no signs of infection more consistent with a heat rash Back: No tenderness full ROM Course Course Course Narrative: RME performed by Jayda Hernandez PA-C. Patient is a 43 year old assigned male at presenting to the emergency department with abdominal cramping, hoarseness, and feeling generally unwell. Detailed physical exam and review of systems are deferred to the alliance director. Labs and swabs ordered. Patient placed back in the waiting room pending room availability and results. Reevaluation(s) Reevaluation #1: Labs show a minimally elevated bilirubin has been higher in the past with associated AST and ALT elevation explain this the patient need to stop alcohol use and follow up with a doctor. Medical Decision Making Medical Decision Making [facility] Narrative: Patient is able the injury normally do not think there is anything concerning about his globus sensation that he is experiencing. He also has follow-up with ENT and has ordered antibiotics for the throat issue he is eating and drinking speaking normally denies any shortness of breath as far as 3 loose stools I do not think there is anything concerning there labs were sent from triage Differential Diagnosis Differential Diagnoses: The differential diagnosis associated with the presentation includes Hypertension anxiety ADHD heat rash globus sensation Lab Data [facility] Lab Attestation statement: I reviewed the patient's lab results. Labs are consistent with alcohol use with an elevated ALT and minimally elevated bilirubin patient has no abdominal pain do not think he has acute cholecystitis 01/28/24 11:49 01/28/24 11:49 Labs: Lab Results 01/28/24 Range/Units 11:49 WBC 6.4 (4.8-10.8) X10*3/uL RBC 5.11 (4.60-5.80) X10*6/uL Hgb 16.7 (14.0-18.0) g/dl Hct 45.1 (42.0-52.0) % MCV 88.3 (80.0-98.0) fL MCH 32.7 (27.0-33.0) pg MCHC 37.0 H (31.0-36.0) g/dl RDW 12.4 (11.0-16.0) % Plt Count 142 L (160-400) X10*3/uL MPV 10.0 (9.4-12.4) fL Immature Gran % (Auto) 0.9 H (0.0-0.4) % Neut % (Auto) 52.6 (45-73) % Lymph % (Auto) 34.4 (20-40) % [place] % (Auto) 10.4 (2-11) % Eos % (Auto) 1.1 (0-4) % Baso % (Auto) 0.6 (0-2) % Lymph # (Auto) 2.2 (1.2-4.9) X10*3/uL [place] # (Auto) 0.7 (0.1-1.2) X10*3/uL Eos # (Auto) 0.1 (0.0-0.4) X10*3/uL Baso # (Auto) 0.0 (0.0-0.2) X10*3/uL Abs Immat Gran (auto) 0.06 H (0.00-0.03) X10*3/uL Absolute Neuts (auto) 3.4 (2.0-8.3) x10*3/uL Absolute Nucleated RBC 0.000 (0.0-0.012) X10*3/uL Nucleated RBC % (auto) 0.0 (0.0-0.2) /100WBC Sodium 139 (135-145) mmol/L Potassium 4.0 (3.3-5.1) mmol/L Chloride 104 (96-108) mmol/L Carbon Dioxide 25 (22-29) mmol/L Anion Gap 14 (12-20) BUN 10 (9-16) mg/dL Creatinine 0.88 (0.5-1.4) mg/dL Estim Creat Clear Calc 130.1 Estimated GFR > 60 Random Glucose 98 (60-115) mg/dL Calcium 10.2 (8.4-10.2) mg/dL Magnesium 1.8 (1.6-2.6) mg/dL Total Bilirubin 1.4 H (0.0-1.0) mg/dL AST 45 H (5-37) U/L ALT 76 H (0-40) U/L Alkaline Phosphatase 63 (39-117) U/L Total Protein 7.4 (6.5-8.0) g/dL Albumin 4.5 (3.5-5.0) g/dL Influenza Type A (PCR) NEGATIVE (Negative) Influenza Type B (PCR) NEGATIVE (Negative) RSV RNA Qual (PCR) NEGATIVE (Negative) SARS-CoV-2 RNA (RT-PCR) NEGATIVE (Negative) S. pyogenes GrpA OWEN Negative (Negative) Discharge Plan Discharge Clinical Impression: Globus sensation, Hoarseness of voice, Elevated LFTs HTN (hypertension) Qualifiers: Hypertension type: primary hypertension Qualified Code(s): I10 - Essential (primary) hypertension Patient Disposition: Home, Self-Care Instructions: Chronic Hypertension (DC), DASH Eating Plan (ED) Additional Instructions: You were seen today for a change in voice, hypertension and loose stools You had labs and exam done which were all normal other than your liver fucntion tests. [facility]. Prescriptions: No Action finasteride 5 mg tablet 5 mg PO DAILY Qty: 90 1RF hydroxyzine HCl 10 mg tablet 10 mg PO BID PRN (Reason: anxiety) 90 Days Qty: 180 1RF valacyclovir 1 gram tablet 1,000 mg PO DAILY Qty: 7 1RF lisinopril 10 mg tablet 10 mg PO DAILY 90 Days Qty: 90 1RF nystatin 100,000 unit/mL suspension 10 ml PO DAILY PRN (Reason: throat irritation) 6 Days Qty: 60 0RF Rx Instructions: swish and swallow Print Language: Zambian
[2024-01-28 11:55] LABS: MANUAL DIFF FLAG NO
[2024-01-28 12:01] LABS: Basophils Percent Auto 0.6 % (0-2); Eosinophils Absolute Auto 0.1 X10*3/uL (0.0-0.4); Eosinophils Percent Auto 1.1 % (0-4); Hematocrit 45.1 % (42.0-52.0); Hemoglobin 16.7 g/dl (14.0-18.0); Imm Gran Abs Auto 0.06 X10*3/uL (0.00-0.03); Imm Gran Pct Auto 0.9 % (0.0-0.4); Lymphocytes Absolute Auto 2.2 X10*3/uL (1.2-4.9); Lymphocytes Percent Auto 34.4 % (20-40); Mean Corpuscular Hemoglobin 32.7 pg (27.0-33.0); Mean Corpuscular Volume 88.3 fL (80.0-98.0); Monocytes Absolute Auto 0.7 X10*3/uL (0.1-1.2); Monocytes Percent Auto 10.4 % (2-11); Neutrophils Absolute Auto 3.4 x10*3/uL (2.0-8.3); Neutrophils Percent Auto 52.6 % (45-73); Platelet Count 142 X10*3/uL (160-400); Red Blood Count 5.11 X10*6/uL (4.60-5.80); Red Cell Distribution Width 12.4 % (11.0-16.0); White Blood Count 6.4 X10*3/uL (4.8-10.8)
[2024-01-28 12:07] LABS: IDNOW Serial# 08D9AD1C; Strep A Nucleic Acid Negative (Negative)
[2024-01-28 12:17] LABS: Alanine Aminotransferase 76 U/L (0-40); Albumin Level 4.5 g/dL (3.5-5.0); Alkaline Phosphatase 63 U/L (39-117); Anion Gap 14 (12-20); Aspartate Amino Transferase 45 U/L (5-37); Bilirubin Total 1.4 mg/dL (0.0-1.0); Blood Urea Nitrogen 10 mg/dL (9-16); Calcium 10.2 mg/dL (8.4-10.2); Carbon Dioxide 25 mmol/L (22-29); Chloride 104 mmol/L (96-108); Creatinine Clr Calc Pharmacy 130.1; Estimated Glomerular Filt Rate > 60; Glucose Random 98 mg/dL (60-115); Magnesium 1.8 mg/dL (1.6-2.6); Sodium 139 mmol/L (135-145); Total Protein 7.4 g/dL (6.5-8.0)
[2024-01-28 12:55] LABS: Influenza A PCR NEGATIVE (Negative); Influenza B PCR NEGATIVE (Negative); Resp Syncy Virus RNA Qual PCR NEGATIVE (Negative); SARS COV2 PCR INHOUSE NEGATIVE (Negative)
[2024-01-28 14:52] VITALS: BP 163/108; PULSE 71; RESP 20; TEMP 36.6; O2SAT 96
[2024-01-28 14:55] VITALS: BP 163/108; PULSE 71; RESP 20; TEMP 36.6; O2SAT 96
== END 2024-01-28 14:55 | disposition home or self-care (01) ==
PROVIDERS: Physician Assistant Medical; Emergency Provider Student in an Organized Health Care Education/Training Program; PCP Physician Assistant
DX: R49.0 Dysphonia (principal); R79.89 Other specified abnormal findings of blood chemistry; F45.8 Other somatoform disorders; I10 Essential (primary) hypertension; Z79.899 Other long term (current) drug therapy; Z03.818 Encounter for observation for suspected exposure to other biological agents ruled out
CPT/HCPCS: 0241U; 80053; 83735; 85025; 87651; 99282; 99283

== ENCOUNTER 2024-02-27 16:10 | Emergency (ER) | payer BC, SELFPAY ==
--- NOTE | ~2024-02-27 | MR_ITS ---
EXAMINATION: MRI ORBIT/FACE/NECK CLINICAL INFORMATION: Evaluate right submandibular gland lesion COMPARISON: Same day CT neck TECHNIQUE: Multiplanar, multisequence imaging of the neck was obtained without and with intravenous contrast. Intravenous contrast: 10 mL Gadavist. FINDINGS: A marker is noted overlying the right submandibular region denoting the site of concern. Corresponding to previously queried lesion within the posterior right submandibular gland on CT is a 1.3 cm T1 hypointense, heterogeneously T2 hyperintense, avidly enhancing lesion demonstrating somewhat bosselated margins. The contralateral left submandibular and bilateral parotid glands are normal. Relatively symmetric nonpathologic size criteria level 2A lymph nodes bilaterally. The fat planes of the skull base and soft tissues of the nasopharynx are unremarkable. Retention cysts in the right maxillary sinus alveolar recess. Single opacified right mastoid air cell. The aerodigestive tract is unremarkable. The imaged thyroid gland is normal. The major flow voids in the neck are maintained. Susceptibility artifact related to C5-C6 and C6-C7 disc arthroplasties. There is asymmetric advanced hypertrophic right C3-C4 facet arthropathy with subchondral marrow edema, cystic/erosive changes seen on prior and associated inflammatory enhancement/synovitis. The imaged portions of the brain parenchyma are unremarkable. MR/MR orbits face neck wo/w con IMPRESSION: 1. 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 ENT consultation advised to guide further management. Relatively symmetric nonpathologic size criteria level 2A lymph nodes bilaterally. 2. Asymmetric advanced hypertrophic right C3-C4 facet arthropathy with subchondral marrow edema, cystic/erosive changes, and inflammatory enhancement/synovitis.
--- NOTE | ~2024-02-27 | CT_ITS ---
EXAMINATION: CT SOFT TISSUE NECK WITHOUT CONTRAST CLINICAL INFORMATION: Right submandibular pain, sialolithiasis COMPARISON: None. TECHNIQUE: Noncontrast helical imaging was performed in the axial plane with generation of coronal and sagittal reformatted images. This CT examination was performed using dose optimization techniques as appropriate, variously including the following: *Automated exposure control. *Adjustment of mA and/or kV according to patient size (this includes techniques or standardized protocols for targeted exams where dose is matched to indication/reason for exam; i.e. extremities or head). *Use of iterative reconstruction technique. DLP: 868 mGycm FINDINGS: There is asymmetric enlargement of the right submandibular gland which demonstrates heterogeneous increased density relative to the contralateral left side. No periglandular fat stranding that would be expected in acute sialoadenitis. Within the posterior aspect of the right submandibular gland is a more geographic region of increased density measuring 1.7 cm, raising suspicion for an intraglandular lesion that would be better characterized on contrast-enhanced MRI or dedicated soft tissue ultrasound. No sialectasis or sialolithiasis along Avery's duct. The fat planes of the skull base and soft tissues of the nasopharynx are unremarkable. Moderate polypoid mucosal disease in the right maxillary sinus alveolar recess and mild mucosal disease in the left maxillary sinus alveolar recess. No mastoid effusion. The temporomandibular joints are normal. Several post root canal changes are seen, including prior root canal of the right mandibular first molar tooth with associated periapical lucency and sclerosis of the surrounding mandibular alveolus compatible with reactive osteitis; correlate clinically for possibility of a failed root canal. The unenhanced aerodigestive tract is unremarkable. No radiopaque foreign bodies identified. The unenhanced thyroid and bilateral parotid glands are normal. No pathologic size criteria or morphologically suspicious cervical chain lymph nodes. The partially visualized lung apices are clear. Prior disc arthroplasties at C5-C6 and C6-C7. Asymmetric advanced right C3-C4 facet arthropathy with subchondral cystic/erosive changes, osteophytosis, and synovial/capsular mineralization, which may reflect underlying crystalline arthropathy that can be correlated clinically. The imaged portions of the brain parenchyma are unremarkable. CT/CT soft tissue neck wo IV con IMPRESSION: 1. There is asymmetric enlargement of the right submandibular gland which demonstrates heterogeneous increased density relative to the contralateral left side, which may at least in part be inflammatory in etiology, however there is no periglandular fat stranding that would be expected in acute sialoadenitis. Within the posterior aspect of the right submandibular gland is a more geographic region of increased density measuring 1.7 cm, raising suspicion for an intraglandular lesion that would be better characterized on contrast-enhanced MRI or dedicated soft tissue ultrasound. No sialectasis or sialolithiasis along Avery's duct. 2. Prior root canal of the right mandibular first molar tooth with associated periapical lucency and sclerosis of the surrounding mandibular alveolus compatible with reactive osteitis; correlate clinically for possibility of a failed root canal. 3. Asymmetric advanced right C3-C4 facet arthropathy with subchondral cystic/erosive changes, osteophytosis, and synovial/capsular mineralization, which may reflect underlying crystalline arthropathy that can be correlated clinically. Findings were discussed with Dr. Ordoñez at 6:06 PM on 02/27/2024.
[2024-02-27 16:26] VITALS: BP 158/101; PULSE 66; RESP 16; TEMP 36.8; O2SAT 97; BMI 29.3
--- NOTE | 2024-02-27 16:28 | ED.GENADULT ---
HPI - General Adult General Chief complaint: General Medical Stated complaint: swollen salivary gland Time Seen by Provider: 02/27/24 16:28 Source: patient Mode of arrival: ambulatory Limitations: no limitations History of Present Illness ED Provider: brenda HOLLIS narrative: Patient 43 years old with history of anxiety and mild hypotension been complaining of pain in the right side of the throat with dry feeling after root canal surgery done in 10/06 of right 2nd molar patient feels his throat dry has seen the ENT and PCP who scoped him and did not find any lesions on the vocal cord but patient is still feels something wrong on his right side of the throat feels very dry also noticed his right submandibular gland slightly enlarged with gets worse when he chews Related Data Previous Rx's ?Medication ?Instructions ?Recorded finasteride 5 mg tablet 5 mg PO DAILY #90 tabs 11/13/23 hydroxyzine HCl 10 mg tablet 10 mg PO BID PRN anxiety 90 days 11/13/23 #180 tabs nystatin 100,000 unit/mL oral 10 ml PO DAILY PRN throat 12/04/23 suspension irritation 6 days #60 mL valacyclovir 1 gram tablet 1,000 mg PO DAILY #7 tabs 01/21/24 lisinopril 10 mg tablet 10 mg PO DAILY 90 days #90 tabs 02/01/24 buspirone 5 mg tablet 5 mg PO BID 30 days #60 tabs 02/06/24 lorazepam 0.5 mg tablet 0.5 mg PO BID PRN anxiety 7 days 02/06/24 #14 tabs Allergies Allergy/AdvReac Type Severity Reaction Status Date / Time No Known Allergies Allergy Verified 02/27/24 16:36 Review of Systems Review of Systems: Yes all other systems are reviewed and are negative PMFSH Past Medical History Medical History History of herpes simplex infection Cervical spondylosis Surgical History Hx of cervical spine surgery Family History Family History Father Cancer of kidney Mother Lung cancer Social History Social History Housing: House Alcohol intake: current Alcohol intake frequency: a few times a month Patient Tobacco Use Status: Never used Tobacco e-Cigarette/Vaping Use: Never Used Second Hand Smoke Exposure: No Advance Directives: No Advance Directives Information Provided: No service: No Current occupational status: employed Current occupational exposures/hazards: No Cognitive needs: No Hearing needs: No Vision needs: No Physical Exam ED Vital Signs: Vital Signs - 24 hr 02/27/24 16:26 02/27/24 16:32 02/27/24 18:46 Temperature 98.3 F 98.3 F 98.3 F Pulse Rate 66 66 50 Respiratory Rate 16 18 16 Blood Pressure 158/101 H 158/101 H 155/104 H Pulse Oximetry 97 97 97 Oxygen Delivery Method Room Air Room Air Room Air 02/27/24 21:40 02/27/24 21:47 Temperature 98.0 F 98.0 F Pulse Rate 53 53 Respiratory Rate 18 18 Blood Pressure 141/99 H 141/99 H Pulse Oximetry 96 96 Oxygen Delivery Method Room Air Room Air BMI result Body Mass Index 29.3 Appearance: Alert. Oriented X3. No acute distress. Eyes: No pallor or icterus ENT: Pharynx normal. Oral Mucosa moist Neck: Normal inspection. Neck supple. Slight prominent right submandibular gland CVS: Normal heart rate and rhythm. Pulses normal. Respiratory: No respiratory distress. Equal air entry bilateral, no wheezing/rales/rhonchi Abdomen: Soft and nontender. Bowel sounds are present, no mass palpable, no CVA tenderness Skin: Skin warm and dry. Normal skin color. Normal skin turgor. Extremities: No lower extremity edema. No calf tenderness Neuro: Oriented X 3. No motor deficit. Medications Administered Discontinued Medications Generic Name Dose Route Start Last Admin Trade Name Freq PRN Reason Stop Dose Admin Gadobutrol 10 ml 02/27/24 20:46 02/27/24 20:50 Gadobutrol 10 Ml Vial IVPUSH 02/27/24 20:47 10 ml ONCE ONE Administration Medical Decision Making Medical Decision Making MDM Narrative: With nonspecific right submandibular pain and swelling workup showed 1.3 cm enhancing lesion right submandibular gland possible epithelial neoplasm. Patient advised follow with ENT Differential Diagnosis Differential Diagnoses: The differential diagnosis associated with the presentation includes Salivary gland tumor/sialadenitis/stone Radiology Impression Discussion of test interpretation with radiology: I have reviewed the radiologist's reading. Radiologist Impression: [place] [address] Magnetic Resonance Report Signed Patient: Johnnie Santos MR#: [id number] : 1980 Acct:[id number] Age/Sex: 43 / M ADM Date: 02/27/24 Loc: HO.ED Attending Dr: Ordering Physician: Renard Tse MD Date of Service: 02/27/24 Procedure(s): MR orbits face neck wo/w con Accession Number(s): [id number] cc: Reed Pillai PA-C; Renard Tse MD~ EXAMINATION: MRI ORBIT/FACE/NECK CLINICAL INFORMATION: Evaluate right submandibular gland lesion COMPARISON: Same day CT neck TECHNIQUE: Multiplanar, multisequence imaging of the neck was obtained without and with intravenous contrast. Intravenous contrast: 10 mL Gadavist. FINDINGS: A marker is noted overlying the right submandibular region denoting the site of concern. Corresponding to previously queried lesion within the posterior right submandibular gland on CT is a 1.3 cm T1 hypointense, heterogeneously T2 hyperintense, avidly enhancing lesion demonstrating somewhat bosselated margins. The contralateral left submandibular and bilateral parotid glands are normal. Relatively symmetric nonpathologic size criteria level 2A lymph nodes bilaterally. The fat planes of the skull base and soft tissues of the nasopharynx are unremarkable. Retention cysts in the right maxillary sinus alveolar recess. Single opacified right mastoid air cell. The aerodigestive tract is unremarkable. The imaged thyroid gland is normal. The major flow voids in the neck are maintained. Susceptibility artifact related to C5-C6 and C6-C7 disc arthroplasties. There is asymmetric advanced hypertrophic right C3-C4 facet arthropathy with subchondral marrow edema, cystic/erosive changes seen on prior and associated inflammatory enhancement/synovitis. The imaged portions of the brain parenchyma are unremarkable. MR/MR orbits face neck wo/w con IMPRESSION: 1. 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 ENT consultation advised to guide further management. Relatively symmetric nonpathologic size criteria level 2A lymph nodes bilaterally. 2. Asymmetric advanced hypertrophic right C3-C4 facet arthropathy with subchondral marrow edema, cystic/erosive changes, and inflammatory enhancement/synovitis. Discharge Plan Discharge Clinical Impression: Mass of right submandibular region Patient Disposition: Home, Self-Care Instructions: Sialoadenitis (ED) Additional Instructions: you have a small mass in your right submandibular gland etiology is not very clear MRI report is pending Follow up with ENT specialist Have sour drops to increase your saliva production Prescriptions: No Action finasteride 5 mg tablet 5 mg PO DAILY Qty: 90 1RF hydroxyzine HCl 10 mg tablet 10 mg PO BID PRN (Reason: anxiety) 90 Days Qty: 180 1RF valacyclovir 1 gram tablet 1,000 mg PO DAILY Qty: 7 1RF lisinopril 10 mg tablet 10 mg PO DAILY 90 Days Qty: 90 1RF lorazepam 0.5 mg tablet 0.5 mg PO BID PRN (Reason: anxiety) 7 Days Qty: 14 0RF buspirone 5 mg tablet 5 mg PO BID 30 Days Qty: 60 1RF nystatin 100,000 unit/mL suspension 10 ml PO DAILY PRN (Reason: throat irritation) 6 Days Qty: 60 0RF Rx Instructions: swish and swallow Interventions: ED Discharge Assessment Last Done: 02/27/24 21:47 Discharge Date/Time: 02/27/24 21:48 Print Language: Maltese
[2024-02-27 16:32] VITALS: BP 158/101; PULSE 66; RESP 18; TEMP 36.8; O2SAT 97
[2024-02-27 18:46] VITALS: BP 155/104; PULSE 50; RESP 16; TEMP 36.8; O2SAT 97
--- NOTE | 2024-02-27 18:52 | PC.NURSE ---
MRI screening form completed and faxed, pt changed over into [facility], 20G PIV placed R SANIYA.
[2024-02-27] MEDS: gadobutroL 10 ML VIAL IVPUSH (20:50)
[2024-02-27 21:40] VITALS: BP 141/99; PULSE 53; RESP 18; TEMP 36.7; O2SAT 96
[2024-02-27 21:47] VITALS: BP 141/99; PULSE 53; RESP 18; TEMP 36.7; O2SAT 96
== END 2024-02-27 21:48 | disposition home or self-care (01) ==
PROVIDERS: Emergency Provider Internal Medicine; PCP Physician Assistant
DX: R22.0 Localized swelling, mass and lump, head (principal); R07.0 Pain in throat; M54.2 Cervicalgia
CPT/HCPCS: 70490; 70543; 96374; 99283; 99284; 99285; A9585

== ENCOUNTER 2024-04-02 10:01 | Outpatient (AMB) | payer BC, SELFPAY ==
--- NOTE | 2024-04-02 10:11 | A.OFFPC_ITS ---
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 here today for a follow-up visit.? Patient's past medical history significant for ADHD, history of elevated blood pressure readings. . Anxiety: Has been started on BuSpar 7.5 mg b.i.d. which he feels has helped his anxiety a whole lot. Has been having some anxiety about his health issues including his dry throat and blood pressure. Today's blood pressure elevated ? .. ?? ?Hypertension: Noted today's blood pressure reading in office elevated. He does report having elevated blood pressure readings at home on 30s to 140s. Will increase his lisinopril 20 mg daily .. 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 ENT consultation advised to guide further management. Relatively symmetric nonpathologic size criteria level 2A lymph nodes bilaterally. Patient has followed up with ENT specialty and had gotten biopsy. Currently waiting on pathology. [facility] Medical History History of herpes simplex infection Cervical spondylosis Surgical History Hx of cervical spine surgery Family History Father Cancer of kidney Mother Lung cancer Social History Housing: House Alcohol intake: current Alcohol intake frequency: a few times a month Patient Tobacco Use Status: Never used Tobacco e-Cigarette/Vaping Use: Never Used Second Hand Smoke Exposure: No service: No Current occupational status: employed Current occupational exposures/hazards: No Cognitive needs: No Hearing needs: No Vision needs: No Questionnaire Thrive Questionnaire Date Thrive assessed: 12/04/23 Are you currently unemployed and looking for a job?: Yes AUDIT C Alcohol Use Questionnaire (AUDIT-C) 2. How many drinks containing alcohol do you have on a typical day when you are drinking?: 1 or 2 3. How often do you have six or more drinks on one occasion?: Never Total Score: 0 DARIO-7 AMB Questionnaire DARIO-7 Date DARIO - 7 assessed: 12/04/23 Source: Developed by Drs. Raoul Escamilla, Ronna Luna, Damion Choe and colleagues, with an educational glenroy from [employer]. Review of Systems Const Denies headache(s) Eyes Denies loss of vision ENT Reports dysphagia, Denies vertigo, Denies dizziness, Denies headache(s), Reports neck mass and Reports sore throat Card Denies chest pain, Denies leg edema and Denies lightheadedness Resp Denies cough, Denies hemoptysis and Denies wheezing GI Denies abdominal pain, Denies melena, Denies constipation, Reports dysphagia, Denies diarrhea and Denies vomiting Denies dysuria, Denies urinary frequency and Denies urinary urgency Musc Denies arthralgias, Denies joint swelling, Denies numbness and Denies tingling Neuro Denies Abnormal speech present, Denies behavioral changes, Denies vertigo, Denies dizziness, Denies headache(s), Denies loss of vision, Denies memory loss, Denies numbness and Denies tingling Psych Reports anxiety, Denies behavioral changes, Denies depression, Reports irritability, Denies memory loss, Reports mood swings and Denies panic attacks [place]/Lymph Denies easy bleeding and Denies easy bruising Aller/Immun Denies wheezing Physical exam (Primary Care) Vital Signs: Last Vital Signs Pulse 77 04/02/24 10:12 BP 150/100 H 04/02/24 10:12 Pulse Ox 99 04/02/24 10:12 Oxygen Delivery Method Room Air 04/02/24 10:12 BMI result Body Mass Index 0.4 Tobacco/Smoking Status: Tobacco use Status Tobacco use date assessed 12/04/23 04/02/24 10:13 Patient Tobacco Use Status Never used Tobacco 04/02/24 10:13 e-Cigarette/Vaping Use Never Used 04/02/24 10:13 Thrive Assessment: Date of Thrive Assessment Date Thrive assessed 12/04/23 04/02/24 10:13 Const General: healthy appearing, no acute distress, alert and awake Nutritional Appearance: well nourished Orientation/consciousness: oriented to person, oriented to place and oriented to time HENMT Ears: TM's normal bilaterally General nose exam: Normal nasal mucous membranes and turbinates present Eyes Conjunctivae: conjunctivae normal Sclerae: sclerae normal Pupils: Equal, round and reactive pupils present Neck Neck: Yes no lymphadenopathy and Yes no JVD Thyroid: Thyroid normal Carotids: no bruits Neck images: 2 1. SMALL PALPABLE MOBILE NODULE PALPATED IN THE AREA OUTLINED Resp Effort & Inspection: normal respiratory effort and not tachypneic Auscultation: no crackles, no rales, no rhonchi and no wheezes Cardio Rate: regular rate Rhythm: regular rhythm Heart sounds: no murmurs and normal S1 and S2 GI Palpation (GI): Soft to palpation, nontender, no hepatomegaly and no splenomegaly Auscultation: normal bowel sounds Skin General skin exam: no rashes or lesions noted and dry skin Neuro General: oriented to person, oriented to place and oriented to time Cranial nerves: Yes Equal, round and reactive pupils present Speech: No Abnormal speech present Gait exam (Neuro): Normal gait present Motor exam (neuro): no tremor noted Extrem Right upper extremity: full ROM Left upper extremity: full ROM Right lower extremity: full ROM; no edema Left lower extremity: full ROM; no edema Psych Mental Status: mental status grossly normal Speech and movement: Normal speech and movement present Affect: normal affect Attitude: cooperative Thought process: Normal thought process present Assessment and Plan Assessment & Plan (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 CURRENTLY WAITING ON RESULTS. He is also underwent a scope visualizing his throat and larynx area without any significant findings. (2) HTN (hypertension): Code(s): I10 - Essential (primary) hypertension Qualifiers: Hypertension type: primary hypertension Qualified Code(s): I10 - Essential (primary) hypertension Plan: Patient's blood pressure slightly elevated today in office. Will increase his lisinopril dose to 20 mg daily, advised to monitor blood pressure at home. l. Advised to continue monitoring blood pressure with goal blood pressure to be below 140/90 (3) Insomnia: Code(s): G47.00 - Insomnia, unspecified Qualifiers: Insomnia type: primary Qualified Code(s): F51.01 - Primary insomnia Plan: Johnnie still reports he has been having trouble sleeping. Has used [id number] sleep aids though have not been too effective. He is willing to try trazodone 25-50 mg before bed to help sleep. (4) Dry mouth: Code(s): R68.2 - Dry mouth, unspecified Plan: Patient continues to report a dry mouth and dry throat, unclear etiology at this time. Will trial pilocarpine to try to promote saliva production. (5) Hypertriglyceridemia: Code(s): E78.1 - Pure hyperglyceridemia Plan: Patient has a history of hypertriglyceridemia, has made lifestyle changes in his diet recently and will get repeat labs done fasting. Goal triglycerides to be below 150 Medications: New 2 pilocarpine HCl 5 mg PO TID 90 tabs 0RF 30 days R68.2 - Dry mouth, unspecified lisinopril 20 mg PO DAILY 30 tabs 1RF 30 days I10 - Essential (primary) hypertension trazodone 50 mg PO BEDTIME 14 tabs 0RF 14 days F51.01 - Primary insomnia Discontinued 2 hydroxyzine HCl Discontinued Reason: Doctor's Order 10 mg PO BID 90 days PRN 180 tabs 1RF anxiety lisinopril Discontinued Reason: Doctor's Order 10 mg PO DAILY 90 days 90 tabs 1RF I10 - Essential (primary) hypertension nystatin swish and swallow Discontinued Reason: Doctor's Order 10 mL PO DAILY 6 days PRN 60 mL 0RF throat irritation R09.A2 - Foreign body sensation, throat Patient Instructions: Goal: Blood pressure to be below 140/90 Barrier: Adherence to physical activity and healthy eating habits Coding Level of Care Code Est Pt Level 4 (09034) Diagnoses 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 Primary hypertension I10 Hypertension type: primary hypertension Primary insomnia F51.01 Insomnia type: primary Dry mouth R68.2 Hypertriglyceridemia E78.1
[2024-04-02 10:12] VITALS: BP 150/100; PULSE 77; O2SAT 99
== END 2024-04-02 11:01 | disposition home or self-care (01) ==
PROVIDERS: PCP Physician Assistant; Visit Provider Physician Assistant
DX: K11.8 Other diseases of salivary glands (principal); I10 Essential (primary) hypertension; F51.01 Primary insomnia; R68.2 Dry mouth, unspecified; E78.1 Pure hyperglyceridemia

== ENCOUNTER → 2024-04-02 10:01 | Outpatient (BNVA) | payer BC, SELFPAY | PROVIDERS: PCP Physician Assistant; Visit Provider Physician Assistant | DX: K11.8 Other diseases of salivary glands (principal); I10 Essential (primary) hypertension; F51.01 Primary insomnia; R68.2 Dry mouth, unspecified; E78.1 Pure hyperglyceridemia; Z79.899 Other long term (current) drug therapy ==

== ENCOUNTER 2024-04-23 08:59 | Outpatient (REF) | payer BC, SELFPAY ==
--- NOTE | ~2024-04-23 | FL_ITS ---
EXAMINATION: XR FLUOROSCOPY UPPER GI WITH AIR CLINICAL INFORMATION: Globus sensation COMPARISON: None TECHNIQUE: Fluoroscopic air contrast upper GI examination was performed utilizing standard techniques with thin and thick barium and effervescent granules. Numerous spot images were obtained. FINDINGS: Lateral cine images of the oropharynx and hypopharynx demonstrate normal swallow mechanism with normal epiglottic inversion and soft palate elevation. No tracheal penetration, glottic or subglottic aspiration identified. No nasopharyngeal reflux present. Hypopharyngeal structures appear normal without evidence of mass or diverticulum. There was no significant cricopharyngeal achalasia. Post surgical fusion with disc prostheses present at C5-C6 and C6-C7. No obvious complication. There appears to be bony bridging through the disc spaces. Dual and single contrast images of the esophagus demonstrate normal caliber, contour, and mucosal pattern. No evidence of stricture, mass, or ulcerations identified. Esophageal peristalsis is mildly disorganized. No evidence of hiatus hernia identified. No significant gastroesophageal reflux was seen during the course of the examination and on reflux views. Dual contrast and single contrast images of the stomach demonstrated normal contour and mucosal pattern without evidence of mass, ulceration, or other abnormality. Contrast freely passed into the gastric antrum and duodenal bulb without delay. Single and air-contrast images of the duodenal bulb demonstrate no abnormality. The duodenal sweep has a normal appearance, course, and mucosal fold appearance. The imaged proximal jejunum has a normal fold pattern and caliber. FLUOROSCOPY TIME: 2 minutes 42 seconds DOSE AREA PRODUCT: 2126 uGy-m2 (microgray-meter squared) FL/FL barium swallow IMPRESSION: 1. Mildly disorganized esophageal peristalsis, otherwise unremarkable examination. 2. Status post surgical fusion with disc prostheses C5-C6 and C6-C7. This procedure was performed by Osiel Nieves PA-C, and supervised by Dr. Lang Electronically signed by: Leroy Lang MD 04/24/2024 12:53 PM EDT
== END 2024-04-23 09:00 | disposition home or self-care (01) ==
LOC: HO.XRAY 08:59
PROVIDERS: PCP Physician Assistant; Visit Provider Physician Assistant
DX: R09.A2 Foreign body sensation, throat (principal); R49.0 Dysphonia
CPT/HCPCS: 74220

== ENCOUNTER → 2024-04-23 09:00 | Outpatient (BNV) | payer BC, SELFPAY | PROVIDERS: PCP Physician Assistant; Visit Provider Radiology Diagnostic Radiology | DX: R09.A2 Foreign body sensation, throat (principal) | CPT/HCPCS: 74221 ==

== ENCOUNTER 2024-06-10 13:07 | Outpatient (AMB) | payer BC, SELFPAY ==
[2024-06-10 13:23] VITALS: BP 126/86; PULSE 67; O2SAT 95; BMI 31.9
--- NOTE | 2024-06-10 13:23 | A.OFFPC_ITS ---
Vital Signs 06/10/24 13:23 Height 5 ft 10 in Weight 222 lb 6 oz BMI 31.9 BP 126/86 Blood Pressure Location Lt brachial Position Sitting Pulse 67 Pulse Source Pulse Oximeter Pulse Oximetry (%) 95 Oxygen Delivery Method Room Air Intake Visit Reasons: Annual Exam Allergies No Known Allergies Allergy (Verified 06/10/24 13:25) Medication List - Last Reconciled 06/10/24 by Reed Pillai PA-C buspirone 7.5 mg PO BID 30 days finasteride 5 mg PO DAILY lisinopril 20 mg PO DAILY 90 days lorazepam 0.5 mg PO BID PRN 7 days pilocarpine HCl 5 mg PO TID 30 days trazodone 50 mg PO BEDTIME 14 days valacyclovir 1,000 mg PO DAILY Tobacco use date assessed: 12/04/23 Dental Screening Dental Screen Date: 12/04/23 HPI Annual Exam HPI Details Patient is a 43 y/o male? here today for a routine annual physical.? Patient's past medical history significant for ADHD, hypertension, anxiety . Anxiety: Has been started on BuSpar 7.5 mg b.i.d. which he feels has helped his anxiety a whole lot. Has been having some anxiety about his health issues including his dry throat and blood pressure. Today's blood pressure elevated ? .. ?? ?Hypertension: Today's blood pressure in office acceptable. He continues on lisinopril 20 mg daily with good effect.. .. 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 ENT Dr Murphy. consultation advised to guide further management. Relatively symmetric nonpathologic size criteria level 2A lymph nodes bilaterally. He is due for removal of the submandibular mass in near future. We did start pilocarpine and he reports his dry mouth and dry throat have completely resolved. He now can swallow without difficulties and his anxiety is much better since his dry mouth and throat has been resolved. Vaccines: Up-to-date with COVID vaccine, flu vaccine, tetanus vaccine [facility] Medical History History of herpes simplex infection Cervical spondylosis Surgical History Hx of cervical spine surgery Family History Father Cancer of kidney Mother Lung cancer Social History Housing: House Alcohol intake: current Alcohol intake frequency: a few times a month Patient Tobacco Use Status: Never used Tobacco e-Cigarette/Vaping Use: Never Used Second Hand Smoke Exposure: No service: No Current occupational status: employed Current occupational exposures/hazards: No Cognitive needs: No Hearing needs: No Vision needs: No Questionnaire PHQ-9 Over the last 2 weeks, how often have you been bothered by any of the following problems? 1. Little interest or pleasure in doing things: not at all 2. Feeling down, depressed, or hopeless: not at all 3. Trouble falling or staying asleep, or sleeping too much: not at all 4. Feeling tired or having little energy: not at all 5. Poor appetite or overeating: several days 6. Feeling bad about yourself - or that you are a failure or have let yourself or your family down: not at all 7. Trouble concentrating on things, such as reading the newspaper or watching television: not at all 8. Moving or speaking so slowly that other people could have noticed. Or the opposite - being so fidgety or restless that you have been moving around a lot more than usual: not at all 9. Thoughts that you would be better off or of hurting yourself in some way: not at all Total score: 1 Depression Screening Interpretation: Negative Depression Screening Done: Yes 55388 - PHQ-9 Billing: Yes Source: Developed by Drs. Raoul Escamilla, Ronna Luna, Damion Choe and colleagues, with an educational glenroy from Drive. Thrive Questionnaire Date Thrive assessed: 06/10/24 I am a: Patient What is your living situation today?: I have a steady place to live Within the past 12 months, did the food you bought not last and you didn't have the money to get more?: Never true Within the past 12 months, did you worry whether your food would run out before you got money to buy more?: Never true Do you have trouble paying for medicines?: No Do you have trouble getting transportation to medical appointments?: No Do you have trouble paying your heating and electricity bill?: No Do you have trouble taking care of your child, family member or friend?: No Do you have trouble with day-to-day activities such as bathing, preparing meals, shopping, managing finances, etc.?: No Are you currently unemployed and looking for a job?: Yes Are you interested in more education?: No Please select the resources that you would like help with: None Currently or been in a relationship where the following occur: No concerns reported THRIVE Score: 0 AUDIT C Alcohol Use Questionnaire (AUDIT-C) 1. How often do you have a drink containing alcohol?: 2-3 times a week 2. How many drinks containing alcohol do you have on a typical day when you are drinking?: 1 or 2 3. How often do you have six or more drinks on one occasion?: Never Total Score: 3 DARIO-7 AMB Questionnaire DARIO-7 Date DARIO - 7 assessed: 06/10/24 Feeling nervous, anxious, or on edge: 1 = Several days Not being able to stop or control worryin = Not at all Worrying too much about different things: 1 = Several days Trouble relaxin = Not at all Being so restless that it is hard to sit still: 0 = Not at all Becoming easily annoyed or irritable: 0 = Not at all Feeling afraid as if something awful might happen: 0 = Not at all Total DARIO-7 score (0-4 normal; 5-9 mild; 10-14 moderate; 15-21 severe): 2 Source: Developed by Drs. Raoul Escamilla, Ronna Luna, Damion Choe and colleagues, with an educational glenroy from Drive. DARIO-7 Assessment Billing DARIO-7 Assessment Tool: DARIO-7 Assessment 79857 Review of Systems Const Denies body aches, Denies chills, Denies excessive sweating, Denies fatigue, Denies fever(s) and Denies headache(s) Eyes Denies blurry vision ENT Denies dysphagia, Denies vertigo, Denies dizziness, Denies headache(s), Denies hearing loss and Denies tinnitus Card Denies chest pain, Denies chest pain with activity, Denies syncope, Denies irregular heart rhythm and Denies dyspnea Resp Denies chest congestion, Denies cough, Denies hemoptysis, Denies dyspnea and Denies wheezing GI Denies abdominal pain, Denies melena, Denies hematochezia, Denies coffee ground emesis, Denies dysphagia, Denies diarrhea, Denies nausea and Denies vomiting Denies difficulty urinating, Denies dysuria, Denies urinary frequency, Denies urinary hesitancy and Denies urinary urgency Musc Denies arthralgias, Denies limited range of motion, Denies muscle cramps and Denies muscle weakness Skin/Breast Denies rash and Denies skin ulcer Neuro Denies Abnormal speech present, Denies confusion, Denies vertigo, Denies dizziness, Denies syncope, Denies headache(s), Denies memory loss and Denies seizure-like activity Psych Denies anxiety, Denies confusion, Denies depression, Denies memory loss, Denies panic attacks and Denies paranoia Endo Denies excessive sweating, Denies fatigue, Denies flushing, Denies polydipsia and Denies polyuria Aller/Immun Denies wheezing Physical exam (Primary Care) Vital Signs: Last Vital Signs Pulse 67 06/10/24 13:23 BP 126/86 06/10/24 13:23 Pulse Ox 95 06/10/24 13:23 Oxygen Delivery Method Room Air 06/10/24 13:23 BMI result Body Mass Index 31.9 Tobacco/Smoking Status: Tobacco use Status Tobacco use date assessed 12/04/23 06/10/24 13:23 Patient Tobacco Use Status Never used Tobacco 06/10/24 13:23 e-Cigarette/Vaping Use Never Used 06/10/24 13:23 PHQ-9: PHQ-9 Score PHQ-9: Total score 1 06/10/24 13:24 Depression Screening Interpretation: Negative Thrive Assessment: Date of Thrive Assessment Date Thrive assessed 06/10/24 06/10/24 13:24 Currently or been in a relationship where the following occur: No concerns reported Const General: cooperative, comfortable, no acute distress, alert and awake; No confusion Orientation/consciousness: oriented to person, oriented to place, patient oriented x3 and No confusion HENKS Head: Yes normocephalic Ears: external ears normal and TM's normal bilaterally Face and sinus: No sinus tenderness Mouth: Normal oral and palatal mucosa present and tongue normal Teeth and gingiva: dentition normal and gingiva normal Throat: Yes posterior oropharynx normal, Yes tonsils normal and Yes uvula midline Eyes Conjunctivae: conjunctivae normal Sclerae: sclerae normal Pupils: Equal, round and reactive pupils present EOM: EOMs intact bilaterally Direct Ophthalmoscopy: No no photophobia Neck Neck: Yes no lymphadenopathy, No tender and Yes no JVD Thyroid: Thyroid normal Carotids: no bruits Chest Chest palpation & inspection: no tenderness Resp Effort & Inspection: normal respiratory effort, no audible wheezes, not labored and no stridor Auscultation: no crackles, no rales, no rhonchi and no wheezes Cardio Jugular venous distension: no JVD Rate: regular rate, not bradycardic and not tachycardic Rhythm: regular rhythm Bruits: no carotid bruits Peripheral pulses: Peripheral pulses 2+ throughout GI Inspection: Yes normal to inspection, No abdominal wall ecchymosis and No visible herniation Palpation (GI): Soft to palpation, nontender, no guarding, not rigid and No hepatosplenomegaly present Auscultation: normoactive bowel sounds General: Yes no CVA tenderness Back/Spine/Pelvis Back: no CVA tenderness and No back tenderness Cervical Spine: cervical ROM normal Thoracic/Lumbar Spine: thoracic and lumbar spine normal to inspection, straight leg raise negative bilaterally, No thoraco-lumbar ROM limited and No lumbar spinal tenderness Skin Lesions: no lesions Rashes: no rashes Wounds: no wounds Neuro General: oriented to person, oriented to place, patient oriented x3, CN's II-XI intact bilaterally and No confusion Cranial nerves: Yes Equal, round and reactive pupils present and Yes Normal accommodation reflex present Cognition (Neuro): normal cognition Speech: No Abnormal speech present Gait exam (Neuro): Normal gait present Motor exam (neuro): 5/5 motor strength present throughout Extrem Right upper extremity: full ROM; no cyanosis Left upper extremity: full ROM; no cyanosis Right lower extremity: no edema Left lower extremity: no edema Psych Appearance: grossly normal Mental Status: mental status grossly normal Affect: normal affect Attitude: cooperative Thought process: Normal thought process present Office Procedures Flu Questionnaire Does the patient have a severe egg allergy?: No Does the patient have severe life threatening allergies?: No Does the patient have a fever or illness today?: No Has the patient ever had Guillain-Dixon Syndrome?: No Has the patient ever had any past reaction to a flu shot?: No Immunizations Fluarix Triv [id number] (PF) 45 mcg (15 mcg x 3)/0.5 mL IM syringe Performing Provider: Reed Pillai PA-C [place] [facility] [place] [facility] Documented (not given) by: CHIP Nava on 06/10/24 13:24 Reason Not Given: Received Previously Coding Level of Care Code Est Pt Prev Care 40-64y(56245) Diagnoses Annual physical exam Z00.00 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 DARIO (generalized anxiety disorder) F41.1 Dry mouth R68.2 Primary hypertension I10 Hypertension type: primary hypertension Class 1 obesity E66.811 Additional Codes DARIO-7 Assessment Billing - DARIO-7 Assessment Tool: DARIO-7 Assessment 19272 ([id number]) PHQ-9 - 23239 - PHQ-9 Billing: Yes ([id number]) Assessment & Plan Assessment & Plan (1) Annual physical exam: Code(s): Z00.00 - Encounter for general adult medical examination without abnormal findings Category: Medical Plan: As per HPI (2) Submandibular gland mass: Code(s): K11.8 - Other diseases of salivary glands Category: Medical Plan: Patient is due to have the submandibular gland mass removed in near future. Since starting pilocarpine his dry mouth throat have completely resolved. He is very satisfied with the results of the medication and will like to continue the medication. (3) DARIO (generalized anxiety disorder): Code(s): F41.1 - Generalized anxiety disorder Category: Medical Plan: Patient reports his anxiety has been very well controlled with current dose BuSpar 7.5 mg b.i.d.. (4) Dry mouth: Code(s): R68.2 - Dry mouth, unspecified Category: Medical Plan: As above (5) HTN (hypertension): Code(s): I10 - Essential (primary) hypertension Category: Medical Qualifiers: Hypertension type: primary hypertension Qualified Code(s): I10 - Essential (primary) hypertension Plan: Patient's blood pressure acceptable today in office. He continues with daily use of lisinopril 20 mg with good effect. Goal blood pressure is to remain below 140/90 (6) Class 1 obesity: Code(s): E66.811 - Obesity, class 1 Category: Medical Plan: Patient does understand his BMI is over 30 will continue working on being more physically active and adapting to better eating habits to reduce his weight . Orders: Orders Influenza [id number] Immunization Today Z23 - Encounter for immunization Comprehensive [place]. Panel Fast Today I10 - Essential (primary) hypertension Microalbumin, Random (w Creat) Today I10 - Essential (primary) hypertension Complete Blood Count no Diff Today I10 - Essential (primary) hypertension
== END 2024-06-10 13:46 | disposition home or self-care (01) ==
PROVIDERS: PCP Physician Assistant; Visit Provider Physician Assistant
DX: Z00.00 Encounter for general adult medical examination without abnormal findings (principal); K11.8 Other diseases of salivary glands; E66.811 Obesity, class 1; Z68.31 Body mass index [BMI] 31.0-31.9, adult; F41.1 Generalized anxiety disorder; R68.2 Dry mouth, unspecified; I10 Essential (primary) hypertension

== ENCOUNTER → 2024-06-10 13:07 | Outpatient (BNVA) | payer BC, SELFPAY | PROVIDERS: PCP Physician Assistant; Visit Provider Physician Assistant | DX: Z00.00 Encounter for general adult medical examination without abnormal findings (principal); K11.8 Other diseases of salivary glands; F41.1 Generalized anxiety disorder; R68.2 Dry mouth, unspecified; I10 Essential (primary) hypertension; E66.811 Obesity, class 1; Z68.31 Body mass index [BMI] 31.0-31.9, adult; Z79.899 Other long term (current) drug therapy | CPT/HCPCS: 96127 ==

== ENCOUNTER 2025-05-06 08:27 | Outpatient (AMB) | payer BC, SELFPAY ==
--- NOTE | 2025-05-06 08:31 | MHC.OFFVIS ---
Vital Signs 05/06/25 08:37 Height 5 ft 10 in Weight 214 lb 4 oz BMI 30.7 Intake Visit Reasons: Anal fissure, unspecified Intake Note: Patient was referred by Reed Pillai for an assessment for anal fissure. Pt c/o; Onset July 2024, reports he has been doing intermittent fasting and has noticed an improvement, denies rectal bleeding, Hx excision right submandibular gland, Jun. Position Classification Specialist Required: No Accompanied by: Self / Same As Patient Allergies No Known Allergies Allergy (Verified 05/06/25 08:38) Medication List - Last Reconciled 05/06/25 by Prasanna Gómez MD buspirone 7.5 mg PO BID 90 days finasteride 5 mg PO DAILY hydrocortisone 2.5% 1 appl topical DAILY 14 days lisinopril 20 mg PO DAILY 90 days lorazepam 0.5 mg PO BID PRN 7 days pilocarpine HCl 5 mg PO TID 90 days trazodone 50 mg PO BEDTIME 30 days valacyclovir 1,000 mg PO DAILY HPI HPI Anal fissure, unspecified: Details: 44 year old male referred for an anal fissure. He describes having pain with passage of stools starting July,. He describes this has feeling ?sharp of glass? when he had bowel movements. He would also notice small amounts of bright blood per rectum around that time. This was not everyday. This persisted for several months. He had he had significant diet change the past few months and he had been eating a lot of fiber. He says that he has not noticed blood per rectum anymore and he says that the pain seems to have resolved recently. 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 [facility] Medical History (Updated 05/06/25 @ 09:01 by Prasanna Gómez MD) Anal fissure History of herpes simplex infection Cervical spondylosis Surgical History Hx of surgical procedure (~06/18/24) Hx of cervical spine surgery Family History Father Cancer of kidney Mother Lung cancer Social History Housing: House Alcohol intake: current Alcohol intake frequency: a few times a month Patient Tobacco Use Status: Never used Tobacco e-Cigarette/Vaping Use: Never Used Second Hand Smoke Exposure: No service: No Current occupational status: employed Current occupational exposures/hazards: No Cognitive needs: No Hearing needs: No Vision needs: No Review of Systems Const Denies chills and Denies fever(s) Card Denies chest pain, Denies dyspnea and Denies dyspnea on exertion Resp Denies cough, Denies dyspnea and Denies dyspnea on exertion GI Denies hematochezia and Denies change in bowel habits Denies hematuria and Denies difficulty urinating Musc Denies back pain and Denies limited range of motion Neuro Denies focal weakness and Denies convulsions Psych Denies depression and Denies mood swings Physical Exam Vital Signs: BMI result Body Mass Index 30.7 Const General: comfortable and no acute distress Orientation/consciousness: patient oriented x3 Neck Neck: Yes no lymphadenopathy Resp Auscultation: clear to auscultation bilaterally Cardio Rhythm: regular rhythm GI Other: Rectal exam shows healed fissure in the posterior midline, not tender Palpation (GI): Soft to palpation, nontender and no guarding Neuro General: patient oriented x3 Office Procedures Anoscopy He was in kneeling cali-knife position. The anoscope was gently inserted. A full examination of the anal canal was done. He had internal external hemorrhoids, non bulky. There was no bleeding. There were no lesions or ulceration. There was no induration on digital exam. Again, there was note of what appeared to be a healed fissure on the posterior midline on retraction of the buttocks. [id number] Assessment & Plan Assessment & Plan (1) Anal fissure: Code(s): K60.2 - Anal fissure, unspecified Category: Medical Plan: Overall exam shows what appears to be an anal fissure. He has had no symptoms for the past month now. The rest of his anoscopy is unremarkable except for internal external hemorrhoids. I advised him on the benefits of avoiding straining and constipation. I also counseled him on the benefits of high fiber diet I told him that he can follow up in the office and if he has recurrent symptoms. Coding Level of Care Code New Pt Level 3 (40808) Diagnoses Anal fissure K60.2 CPT Codes Details - CPT: 53712-[id number] ([id number])
[2025-05-06 08:37] VITALS: BMI 30.7
--- OUTSIDE RECORDS SUMMARY | 2025-05-06 08:43 | XMS_ITS | Clinical Summary ---
Author Organization [facility] Address [address] [place] [address] Phone Care Team Providers Care Ortho Tech Name Role Phone Reed Pillai Primary Care Provider Allergies No known active allergies Medications finasteride (PROSCAR) 5 mg tablet Take 1 tablet (5 mg total) by mouth 1 (one) time each day. Do not crush, chew, or split. Active lisinopriL (PRINIVIL,ZESTRI L) 20 mg tablet Take 1 tablet (20 mg total) by mouth 1 (one) time each day. Active busPIRone (BUSPAR) 7.5 mg tablet Take by mouth 2 (two) times a day. Active pilocarpine (SALAGEN) 5 mg tablet Take 1 tablet (5 mg total) by mouth 3 (three) times a day. Active Surgical History Surgery Date Site/Laterality Comments CERVICAL DISCECTOMY Medical History Medical History Date Comments Hypertension GERD (gastroesophageal reflux disease) Anxiety Social History Tobacco Use Types Packs/Day Years Used Date Smoking Tobacco: Never Assessed Alcohol Use Standard Drinks/Week Comments Yes 0 (1 standard drink = 0.6 oz pur e alcohol) SOCIAL Interpersonal Safety Answer Date Record ed Physical Abuse Unrecognized value 06/18/2024 Verbal Abuse Unrecognized value 06/18/2024 Sex and Gender Information Value Date Recorded Sex Assigned at Male 06/18/2024 8:08 AM EST Legal Sex Male 9:30 PM EST Gender Identity Male 06/18/2024 8:08 AM EST Sexual Orientation Straight 06/18/2024 8: 08 AM EST Obstetrics History Last Filed Vital Signs Vital Sign Reading Time Taken Comments Blood Pressure 123/87 06/18/2024 1:09 PM EST Pulse 60 06/18/2024 1:09 PM EST Temperature 36.5 C (97.7 F) 06/18/2024 1:09 PM EST Respiratory Rate 12 06/18/2024 12:45 PM EST Oxygen Saturation 95% 06/18/2024 1:09 PM EST Inhaled Oxygen Concentration - - Weight 95.3 kg (210 lb) 06/05/2024 12:00 PM EST Height 177.8 cm (5' 10 ) 06/05/2024 12:00 PM EST Body Mass Index 30.13 06/05/2024 12:00 PM EST Plan of Treatment Health Maintenance Due Date Last Done Comments DTaP,Tdap,and Td Vaccines (1 - Tdap) 2001 Hepatitis B Vaccines (1 of 3 - 19+ 3-dose series) 2001 HPV Vaccines (1 - 3-dose SCD M series) 2009 Cholesterol Screening (Lipid Panel) 06/13/2024 HIV Screening 06/13/2024 Hepatitis C Screening 06/13/2024 Social Influencers of Health Screening 06/13/2024 Depression Screening 07/16/2024 COVID-19 Vaccine ( - 2023-2 5 season) 2025 Influenza Vaccine (#1) 2025 RSV Immunization Adult Patie nts (1 - 1-dose 75+ series) 2057 HIB Vaccines Aged Out No longer eligi ble based on patient's age to complete this topic Hepatitis A Vaccines Aged Out No long er eligible based on patient's age to complete this topic IPV Vaccines Aged Out No longer eligi ble based on patient's age to complete this topic MMR Vaccines Aged Out No longer eligi ble based on patient's age to complete this topic Meningococcal ACWY Vaccine Aged Out N o longer eligible based on patient's age to complete this topic Meningococcal B Vaccine Aged Out No l onger eligible based on patient's age to complete this topic Pneumococcal Vaccine: Pediat rics (0 to 5 Years) and At-Risk Patients (6 to 49 Years) Aged Out No longer eligible b ased on patient's age to complete this topic RSV Immunization Patients Un maribel 20 months Aged Out No longer eligible b ased on patient's age to complete this topic Varicella Vaccines Aged Out No longer eligible based on patient's age to complete this topic Insurance [facility] Care Teams Ortho Tech Relationship Specialty Start Date End Date Reed Pillai PA PCP - General Physician Forest Resource Specialist 04/18/19
--- OUTSIDE RECORDS SUMMARY | 2025-05-06 08:43 | XMS_ITS | Clinical Summary ---
Author Organization [facility] Address [address] [place] [id number] Phone Care Team Providers Care High Tension Tester Name Role Phone Pcp, Unknown Primary Care Provider Unavailabl e Social History Tobacco Use Types Packs/Day Years Used Date Smoking Tobacco: Never Assessed Education Answer Date Recorded Are you interested in more education? Not on robe e 03/21/2024 Are you concerned about learning? Not on file 03/21/2024 No 03/21/2024 No 03/21/2024 Digital Access Answer Date Recorded No 03/21/2024 No 03/21/2024 Reliable internet access at home? Not on file 03/21/2024 Device with a working camera? Not on file Sex and Gender Information Value Date Recorded Sex Assigned at Not on file Legal Sex Male 5:19 PM EDT Gender Identity Not on file Sexual Orientation Not on file Plan of Treatment Not on file Medical Devices Not on file Insurance [facility] EPO [facility] [place] [address] [place] [address] PPO EPO [facility] [place] [address] [place] [address] PPO EPO [facility] PPO EPO Care Teams High Tension Tester Relationship Specialty Start Date End Date Pcp, Unknown PCP - General 03/20/24 Additional Source Comments The information contained in this document represents components of the legal health record. It is not the complete legal health record.[facility]
== END 2025-05-06 09:10 | disposition home or self-care (01) ==
LOC: HO.HGS 08:28
PROVIDERS: PCP Physician Assistant; Visit Provider Surgery
DX: K60.2 Anal fissure, unspecified (principal)
CPT/HCPCS: 46600; 99203

== ENCOUNTER → 2025-05-06 08:27 | Outpatient (BNVA) | payer BC, SELFPAY | PROVIDERS: PCP Physician Assistant; Visit Provider Surgery | DX: K60.2 Anal fissure, unspecified (principal) | CPT/HCPCS: 46600 ==